=== PATIENT | female | born 1985 | race African-American/Black ===

== ENCOUNTER 2017-01-29 12:03 | Outpatient (CLI) | payer MEDICAID, OTHER ==
--- NOTE | 2017-01-29 13:27 | Non Stress Test Report ---
Non Stress Test Datetime Report Generated by CPN: 01/29/2017 13:27 DEMOGRAPHIC EGA NST: 34.3 INDICATION Indication for Study: Diabetes Mellitus VITAL SIGNS Temperature - NST: 98.0 Pulse - NST: 86 RESP - NST: 18 NBPSYS NST: 103 NBPDIA NST: 61 MONITORING Monitor Explained: Monitor Explained; Test Explained; Patient Verbalized Understanding Time on Monitor: 01/29/2017 12:09 Time off Monitor: 01/29/2017 13:14 NST Duration: 65 NST INTERVENTIONS NST Interventions: PO Hydration; Reposition Patient Physician Notified NST: H Keegan CNM BABY A: [id number] BABY A Movement : Present Contraction Frequency : denies FHR Baseline : 140 Accelerations : 15X15 Decelerations : None Variability : Moderate 6-25bpm NST Review: Meets Criteria for Reactive NST NST Review and Verified By : Jaquan Marsh RN NST Results: Reactive NST REPORT Report Trigger: Send Report
== END 2017-01-29 13:16 | disposition home or self-care (01) ==
LOC: LC 12:03
PROVIDERS: ATTEND Obstetrics & Gynecology
PROC: 4A1HXCZ Monitoring of Products of Conception, Cardiac Rate, External Approach (ICD-10-PCS; principal; 2017-01-29)
DX: O24.419 Gestational diabetes mellitus in pregnancy, unspecified control (principal); Z3A.34 34 weeks gestation of pregnancy
CPT/HCPCS: 59025

== ENCOUNTER 2017-02-02 16:31 | Outpatient (CLI) | payer BC, MEDICAID ==
--- NOTE | 2017-02-02 18:00 | L&D Flow Sheet ---
LD Flowsheet Datetime Report Generated by CPN: 02/02/2017 18:00 Datetime: 02/02/2017 17:34 Patient Position/Activity: Left Lateral (Clarissa Richards, RN) Datetime: 02/02/2017 17:33 Communication Comments: K. Koenig CNM on unit, reviewed strip. Orders for BPP (Clarissa Richards, RN) Datetime: 02/02/2017 17:13 Patient Position/Activity: Right Lateral (Clarissa Richards, RN) Datetime: 02/02/2017 16:52 NBP Sys/Keena/Mean (mmHg): 108 (QS system process) : 60 (QS system process) : 75 (QS system process) Pulse: 76 (QS system process) LaborFlag: Labor (QS system process)
--- NOTE | 2017-02-02 18:37 | Non Stress Test Report ---
Non Stress Test Datetime Report Generated by CPN: 02/02/2017 18:36 DEMOGRAPHIC EGA NST: 35.0 INDICATION Indication for Study: Other MONITORING Monitor Explained: Monitor Explained; Test Explained; Patient Verbalized Understanding Time on Monitor: 02/02/2017 16:50 Time off Monitor: 02/02/2017 18:24 NST Duration: 94 NST INTERVENTIONS NST Interventions: PO Hydration; Reposition Patient Physician Notified NST: K. Koenig CNM BABY A Movement : Present Contraction Frequency : none FHR Baseline : 145 Accelerations : 15X15 Decelerations : None Variability : Moderate 6-25bpm NST Review: Meets Criteria for Reactive NST NST Review and Verified By : SIN Hurst Results: Reactive NST REPORT Report Trigger: Send Report
== END 2017-02-02 18:28 | disposition home or self-care (01) ==
LOC: LC 16:31
PROVIDERS: ATTEND Specialist
PROC: 4A1HXCZ Monitoring of Products of Conception, Cardiac Rate, External Approach (ICD-10-PCS; principal; 2017-02-02)
DX: Z34.93 Encounter for supervision of normal pregnancy, unspecified, third trimester (principal); Z36 Encounter for antenatal screening of mother; Z3A.35 35 weeks gestation of pregnancy
CPT/HCPCS: 59025

== ENCOUNTER 2017-02-04 00:13 | Emergency (ER) | payer BC, MEDICAID ==
[2017-02-04] MEDS ORDERED: MECLIZINE HCL 25 MG TABLET PO ONE (04:30)
--- NOTE | 2017-02-04 04:47 | ER Document Report ---
ED General - General Chief Complaint: Vertigo Stated Complaint: Dizzy Notes: Patient is a pleasant 31-year-old female who is 35 weeks . She presents for complaints of vertigo. She says when she turns her head to the right she feels a spinning sensation. She keeps her head still she does not have the spinning sensation. Symptoms started today. She was recently diagnosed with a sinus infection by her primary care doctor. She is placed on amoxicillin a few days ago. She's had no fevers. She's had sinus pressure and congestion. No head injury. Some nausea with the dizziness. No abdominal pain. No vaginal bleeding. No complications with her . TRAVEL OUTSIDE OF THE [place] IN LAST 30 DAYS: No - Related Data Allergies/Adverse Reactions: No Known Allergies Allergy (Verified 02/02/17 16:47) Past Medical History - Social History Smoking Status: Unknown if Ever Smoked Frequency of alcohol use: None Drug Abuse: None Family History: Reviewed & Not Pertinent Patient has suicidal ideation: No Patient has homicidal ideation: No Renal/ Medical History: Denies: Hx Peritoneal Dialysis - Immunizations Hx Diphtheria, Pertussis, Tetanus Vaccination: Yes Review of Systems - Review of Systems Notes: My Normal Review Basic REVIEW OF SYSTEMS: CONSTITUTIONAL : Denies fever, chills, or sweats. Denies recent illness. EENT: Sinus congestion. RESPIRATORY: Denies cough, cold, or chest congestion. Denies shortness of breath, difficulty breathing, or wheezing. GASTROINTESTINAL: Denies abdominal pain. Denies nausea, vomiting, or diarrhea. Denies constipation. Last BM: MUSCULOSKELETAL: Denies neck or back pain or joint pain or swelling. SKIN: Denies rash or skin lesions. HEMATOLOGIC : Denies easy bruising or bleeding. LYMPHATIC: Denies swollen, enlarged glands. NEUROLOGICAL: Vertigo type dizziness. PSYCHIATRIC: Denies anxiety or stress or depression. ALL OTHER SYSTEMS REVIEWED AND NEGATIVE. Physical Exam - Vital signs Vitals: Temp Pulse Resp BP Pulse Ox 98.8 F 83 18 110/70 99 02/04/17 00:54 02/04/17 00:54 02/04/17 00:54 02/04/17 00:54 02/04/17 00:54 - Notes Notes: General Appearance: Well nourished, alert, cooperative, no acute distress, no obvious discomfort. Vitals: reviewed, See vital signs table. Head: no swelling or tenderness to the head Eyes: PERRL, EOMI, Conjuctiva clear. Patient has nystagmus with right lateral gaze. This is horizontal nystagmus that goes away when the patient looks straight. Mouth: No decreasd moisture Throat: No tonsillar inflammation, No airway obstruction, No lymphadenopathy Neck: Supple, no neck tenderness, No thyromegaly Lungs: No wheezing, No rales, No rhonci, No accessory muscle use, good air exchange bilaterally. Heart: Normal rate, Regular rythm, No murmur, no rub Extremities: strength 5/5 in all extremities, good pulses in all extremities, no swelling or tenderness in the extremities, no edema. Skin: warm, dry, appropriate color, no rash Neuro: speech clear, oriented x 3, normal affect, responds appropriately to questions. Cranial nerves II through XII are intact. Patient moves all extremities on her own without any difficulty. Patient develops vertigo type dizziness when she turns her head to right. When she makes her head center the vertigo goes away. She has no vertigo when she turns her head to the left. Course - Vital Signs Vital signs: Temp Pulse Resp BP Pulse Ox 98.5 F 87 17 112/73 99 02/04/17 04:53 02/04/17 04:53 02/04/17 04:53 02/04/17 04:53 02/04/17 04:53 - Transfer of Care Notes: 02/04/17 06:23 Patient's has signs and symptoms consistent with vestibulitis and peripheral vertigo. Patient will be given meclizine. Patient is encouraged to be very careful and to stand up slowly. She's encouraged to return to ER if her symptoms are not improving 2-3 days. She's encouraged to follow closely with her OB physician. Patient agrees with plan will be discharged home. She has normal blood pressure and no signs of preeclampsia. Dictation of this chart was performed using voice recognition software; therefore, there may be some unintended grammatical errors. Discharge - Discharge Clinical Impression: Vertigo Condition: Good Disposition: HOME, SELF-CARE Instructions: Vertigo ([facility]) Additional Instructions: Please return to ER immediately if you have intractable worsening dizziness, fevers, or feel too unsteady on your feet. Please follow-up with your doctor in 2-3 days. Prescriptions: Meclizine HCl 25 mg PO TID PRN #30 tab.chew PRN Reason: dizziness Referrals: MARYJO GA MD [Primary Care Provider] - Follow up as needed
[2017-02-04 04:54] VITALS: BP 112/73
== END 2017-02-04 04:54 | disposition home or self-care (01) ==
LOC: EDSTATUS 00:13 → ER 00:13
DX: R42 Dizziness and giddiness (principal); Z3A.35 35 weeks gestation of pregnancy
CPT/HCPCS: 99283

== ENCOUNTER 2017-02-05 07:52 | Outpatient (CLI) | payer BC, MEDICAID ==
[2017-02-05] MEDS ORDERED: RINGERS SOLUTION,LACTATED 1,000 ML IV ONE (08:30)
[2017-02-05] MEDS ORDERED: RINGERS SOLUTION,LACTATED 1,000 ML IV PRN (08:30)
[2017-02-05 08:46] LABS: APPEARANCE,URINE SLIGHTLY-CLOUDY; BILIRUBIN,URINE NEGATIVE (NEGATIVE); GLUCOSE, URINE NEGATIVE (NEGATIVE); KETONES,URINE NEGATIVE (NEGATIVE); LEUKOCYTE ESTERASE,URINE NEGATIVE (NEGATIVE); NITRITE,URINE NEGATIVE (NEGATIVE); PROTEIN,URINE NEGATIVE (NEGATIVE); URINE SPECIFIC GRAVITY 1.011; UROBILINOGEN,URINE NEGATIVE mg/dL (<2.0)
[2017-02-05 09:37] LABS: URINE BARBITURATES SCREEN NEGATIVE; URINE METHADONE SCREEN NEGATIVE; URINE OPIATES LOW NEGATIVE; URINE PHENCYCLIDINE SCREEN NEGATIVE
[2017-02-05] MEDS ORDERED: NIFEDIPINE 10 MG CAPSULE PO ONE (09:59)
--- NOTE | 2017-02-05 10:00 | L&D Flow Sheet ---
LD Flowsheet Datetime Report Generated by CPN: 02/05/2017 10:00 Datetime: 02/05/2017 09:44 NBP Sys/Keena/Mean (mmHg): 116 (QS system process) : 73 (QS system process) : 88 (QS system process) Pulse: 81 (QS system process) LaborFlag: Labor (QS system process) Datetime: 02/05/2017 09:30 Respirations: 16 (Delbert Reciot, RN) Monitor Mode: External; Palpation (Delbert Duron RN) Frequency (min): 2-4 (Delbert Duron RN) Quality: Mild/Moderate (Delbert Duron RN) Duration (sec): 60-80 (Delbert Duron RN) Duration Criteria: Less than Two 120 Second Contractions (Delbert Duron RN) Pattern: Normal: <= 5 Contractions in 10 Minutes (Delbert Duron RN) Resting Tone (Palpate): Relaxed (Delbert Duron RN) Monitor Mode: External US (Delbert Duron RN) FHR Baseline Rate : 135 (Delbert Duron RN) Variability: Moderate 6-25 bpm (Delbert Duron RN) Accelerations: 15X15 (Delbert Duron RN) Decelerations: Variable (Delbert Duron RN) Pain Scale: 2 (Delbert Duron RN) Pain Presence: Intermittent (Delbert Duron RN) Pain Type: Contraction (Delbert Duron RN) Pain Location: Abdomen (Delbert Duron RN) Pain Relief Measures: Comfort Measures (Delbert Duron RN) Pain Coping: Talking Through Contractions; Declines Medication or Epidural (Delbert Duron RN) Pain Assessment Comments: No distress noted (Delbert Duron RN) Level of Consciousness: Fully Conscious (Delbert Duron RN) Headache: Denies (Delbert Duron RN) Nausea/Vomiting: Denies (Delbert Duron RN) RUQ Epigastric Pain: Denies (Delbert Duron RN) Comfort Measures: Breathing/Relaxation (Delbert Duron RN) Communication: RN at Bedside; RN Reviewed Strip (Delbert Duron RN) LaborFlag: Labor (QS system process) Datetime: 02/05/2017 09:27 NBP Sys/Keena/Mean (mmHg): 111 (QS system process) : 74 (QS system process) : 89 (QS system process) Pulse: 88 (QS system process) LaborFlag: Labor (QS system process) Datetime: 02/05/2017 09:14 I/O Interventions: Up to BR (Delbert Domi, RN) Datetime: 02/05/2017 09:13 NBP Sys/Keena/Mean (mmHg): 119 (QS system process) : 76 (QS system process) : 94 (QS system process) Pulse: 82 (QS system process) LaborFlag: Labor (QS system process) Datetime: 02/05/2017 09:12 IV/Blood Work: IV Started; IV Bolus Started (Delbert Duron RN) Patient Care Comments: 18G R AC, LR bolus, site wnl, IV infuses well. (Delbert Duron RN) Datetime: 02/05/2017 09:00 Monitor Mode: External; Palpation (Delbert Duron RN) Frequency (min): 2-3 (Delbert Duron RN) Quality: Moderate (Delbert Duron RN) Duration (sec): 60-80 (Delbert Duron RN) Duration Criteria: Less than Two 120 Second Contractions (Delbert Duron RN) Pattern: Normal: <= 5 Contractions in 10 Minutes (Delbert Duron RN) Resting Tone (Palpate): Relaxed (Delbert Duron RN) Monitor Mode: External US (Delbert Duron RN) FHR Baseline Rate : 135 (Delbert Duron RN) Variability: Moderate 6-25 bpm (Delbert Duron RN) Accelerations: 15X15 (Delbert Duron RN) Decelerations: None (Delbert Duron RN) Communication: RN at Bedside; RN Reviewed Strip (Delbert Domi, RN) Datetime: 02/05/2017 08:34 Monitor Interventions for FHR: Ultrasound Adjusted (Delbert Domi, RN) Comments: +FM; RN attempting to attempt continuous fht; active movement. (Delbert Domi, RN) Datetime: 02/05/2017 08:30 Monitor Mode: External; Palpation (Delbert Navaeet, RN) Frequency (min): 2-3 (Delbert Domi, RN) Quality: Moderate (Delbert Domi, RN) Duration (sec): 50-80 (Delbert Domi, RN) Duration Criteria: Less than Two 120 Second Contractions (Delbert Domi, RN) Pattern: Normal: <= 5 Contractions in 10 Minutes (Delbert Domi, RN) Resting Tone (Palpate): Relaxed (Delbert Domi, RN) Monitor Mode: External US (Delbert Navaeet, RN) FHR Baseline Rate : 140 (Delbert Domi, RN) Variability: Moderate 6-25 bpm (Delbert Domi, RN) Accelerations: 10X10 (Delbert Duron RN) Decelerations: None (Delbert Duron RN) Pain Scale: 2 (Delbert Duron RN) Pain Presence: Intermittent (Delbert Duron RN) Pain Type: Contraction (Delbert Duron RN) Pain Location: Abdomen (Delbert Duron RN) Pain Relief Measures: Comfort Measures (Delbert Duron RN) Pain Coping: Talking Through Contractions; Declines Medication or Epidural (Delbert Duron RN) Comfort Measures: Breathing/Relaxation (Delbert Duron RN) Communication: RN at Bedside; RN Reviewed Strip (Delbert Duron RN) Communication Comments: Kati Olson CNM notified of pt arrival, complaint, history. contractions Moderate since 11pm 2-3min, EFM strip, fht, vs. Orders received for IV LR bolus x1 L now then 125ml/hr (Delbert Duron RN) LaborFlag: Labor (QS system process) Datetime: 02/05/2017 08:27 NBP Sys/Keena/Mean (mmHg): 117 (QS system process) : 82 (QS system process) : 96 (QS system process) Pulse: 88 (QS system process) LaborFlag: Labor (QS system process) Datetime: 02/05/2017 08:16 Patient Care Comments: Pt instructed to PO hydrate x1 pitcher of water now. (Delbert Duron RN) Datetime: 02/05/2017 08:15 Monitor Interventions for UA: [place] Adjusted (Delbert Duron RN) Frequency (min): 2-3min (Delbert Duron RN) Monitor Interventions for FHR: Ultrasound Adjusted (Delbert Duron RN) Vaginal Bleeding: None (Delbert Duron RN) Level of Consciousness: Fully Conscious (Delbert Duron RN) DTR's/Clonus: DTRs 2+; No Clonus (Delbert Duron RN) Headache: Denies (Delbert Duron RN) Breath Sounds, Left: Clear and Equal (Delbert Duron RN) Breath Sounds, Right: Clear and Equal (Delbert Duron RN) Nausea/Vomiting: Denies (Delbert Duron RN) RUQ Epigastric Pain: Denies (Delbert Duron RN) Patient Position/Activity: Right Lateral (Delbert Duron RN) Comfort Measures: Breathing/Relaxation (Delbert Duron RN) I/O Interventions: Clear Liquids Given; Up to BR (Delbert Duron RN) Instructional Method: Demo; Verbal; Patient Instructed; Family/Support Person Instructed; Verbalized Understanding (Delbert Duron RN) Plan of Care: Plan of Care Discussed; Labor (Delbert Duron RN) Unit Routine: [place] to Room; Call [place]ung; Bed; Visiting Policy; Waiting Areas; Infant Security; Phone/Cell Phone Use; Photography; Unit Personnel; Handwashing; Flu/Illness Precautions; Monitoring; IV Pumps; Safety/Fall Risk Prevention; Diet/Nutrition Services; Bathroom Privileges; Routine Time Outs; Medications (Delbert Duron RN) Pain Management: PRN Medications; Pain Scale/Goals; Comfort Measures (Delbert Duron RN) PTL/PROM: PTL Stimulating Activities; Hydration (Delbert Duron RN) Related: Common Discomforts of ; Maternal Physical Changes; Maternal Emotional Changes; Nutrition; Hydration; Activity and Rest (Delbert Duron RN) Datetime: 02/05/2017 08:13 Temperature (F): 98.0 (Delbert Duron RN) Temperature (C): 36.7 (QS system process) LaborFlag: Labor (QS system process) Datetime: 02/05/2017 08:12 NBP Sys/Keena/Mean (mmHg): 114 (QS system process) : 83 (QS system process) : 94 (QS system process) Pulse: 93 (QS system process) LaborFlag: Labor (QS system process)
[2017-02-05] MEDS ORDERED: NIFEDIPINE 10 MG CAPSULE ONE (10:03)
--- NOTE | 2017-02-05 10:23 | Non Stress Test Report ---
Non Stress Test Datetime Report Generated by CPN: 02/05/2017 10:23 DEMOGRAPHIC EGA NST: 35.3 INDICATION Indication for Study: Ordered by Provider Indication for Study (NST) Other: NST MONITORING Monitor Explained: Monitor Explained; Test Explained; Patient Verbalized Understanding Time on Monitor: 02/05/2017 09:42 Time off Monitor: 02/05/2017 10:18 NST Duration: 36 NST INTERVENTIONS NST Interventions: None Physician Notified NST: BOLAND BABY A Movement : Present Contraction Frequency : 2-5 FHR Baseline : 135 Accelerations : 15X15 Decelerations : None Variability : Moderate 6-25bpm NST Review: Meets Criteria for Reactive NST NST Review and Verified By : SIN Dias Results: Reactive NST REPORT Report Trigger: Send Report
--- NOTE | 2017-02-06 11:49 | Non Stress Test Report ---
Non Stress Test Datetime Report Generated by CPN: 02/06/2017 11:48 DEMOGRAPHIC EGA NST: 35.4 INDICATION Indication for Study: Other Indication for Study (NST) Other: LC MONITORING Monitor Explained: Monitor Explained; Test Explained; Patient Verbalized Understanding Time on Monitor: 02/06/2017 11:13 Time off Monitor: 02/06/2017 11:47 NST Duration: 34 NST INTERVENTIONS NST Interventions: PO Hydration Physician Notified NST: K. Koenig CNM BABY A Movement : Present Contraction Frequency : 0 FHR Baseline : 140 Accelerations : 15X15 Decelerations : None Variability : Moderate 6-25bpm NST Review: Meets Criteria for Reactive NST NST Review and Verified By : SIN Dias Results: Reactive NST REPORT Report Trigger: Send Report
== END 2017-02-05 11:25 | disposition home or self-care (01) ==
LOC: LC 07:52
PROVIDERS: ATTEND Obstetrics & Gynecology
PROC: 4A1HXCZ Monitoring of Products of Conception, Cardiac Rate, External Approach (ICD-10-PCS; principal; 2017-02-05)
DX: O47.03 False labor before 37 completed weeks of gestation, third trimester (principal); Z3A.35 35 weeks gestation of pregnancy
CPT/HCPCS: 59025; 81001; 87081; 80307; J3490

== ENCOUNTER 2017-02-06 10:45 | Outpatient (CLI) | payer BC, MEDICAID ==
[2017-02-06 11:27] LABS: APPEARANCE,URINE SLIGHTLY-CLOUDY; BILIRUBIN,URINE NEGATIVE (NEGATIVE); GLUCOSE, URINE NEGATIVE (NEGATIVE); KETONES,URINE NEGATIVE (NEGATIVE); LEUKOCYTE ESTERASE,URINE TRACE (NEGATIVE); NITRITE,URINE NEGATIVE (NEGATIVE); PROTEIN,URINE NEGATIVE (NEGATIVE); URINE SPECIFIC GRAVITY 1.008; UROBILINOGEN,URINE NEGATIVE mg/dL (<2.0)
[2017-02-06 11:29] LABS: AMNISURE (ROM) NEGATIVE (NEGATIVE)
[2017-02-06 12:18] LABS: URINE BARBITURATES SCREEN NEGATIVE; URINE METHADONE SCREEN NEGATIVE; URINE OPIATES LOW NEGATIVE; URINE PHENCYCLIDINE SCREEN NEGATIVE
== END 2017-02-06 12:02 | disposition home or self-care (01) ==
LOC: ER 10:45 → LC 12:02
PROVIDERS: ATTEND Obstetrics & Gynecology
PROC: 4A1HXCZ Monitoring of Products of Conception, Cardiac Rate, External Approach (ICD-10-PCS; principal; 2017-02-06)
DX: O47.03 False labor before 37 completed weeks of gestation, third trimester (principal); Z3A.35 35 weeks gestation of pregnancy
CPT/HCPCS: 80307; 81001; 84112

== ENCOUNTER 2017-02-07 07:13 | Inpatient (IN) | payer BC, MEDICAID ==
[2017-02-07 07:51] LABS: AMNISURE (ROM) POSITIVE (NEGATIVE)
[2017-02-07 07:57] LABS: APPEARANCE,URINE CLEAR; BILIRUBIN,URINE NEGATIVE (NEGATIVE); GLUCOSE, URINE NEGATIVE (NEGATIVE); KETONES,URINE NEGATIVE (NEGATIVE); LEUKOCYTE ESTERASE,URINE NEGATIVE (NEGATIVE); NITRITE,URINE NEGATIVE (NEGATIVE); PROTEIN,URINE NEGATIVE (NEGATIVE); URINE SPECIFIC GRAVITY 1.012; UROBILINOGEN,URINE NEGATIVE mg/dL (<2.0)
--- NOTE | 2017-02-07 08:01 | L&D Flow Sheet ---
LD Flowsheet Datetime Report Generated by CPN: 02/07/2017 08:00 Datetime: 02/07/2017 07:43 Frequency (min): q 3 min (Leann Smith RN) Pain Scale: 3 (Leann Smith RN) Pain Presence: Intermittent (Leann Smith RN) Pain Type: Contraction (Leann Smith RN) Pain Location: Abdomen (Leann Smith RN) Pain Goal: 0 (Leann Smith RN) Vaginal Bleeding: None (Leann Smith RN) Level of Consciousness: Fully Conscious (Leann Smith RN) DTR's/Clonus: DTRs 2+; No Clonus (Leann Smith RN) Headache: Denies (Leann Smith RN) Breath Sounds, Left: Clear and Equal (Leann Smith RN) Breath Sounds, Right: Clear and Equal (Leann Smith RN) Nausea/Vomiting: Denies (Leann Smith RN) RUQ Epigastric Pain: Denies (Leann Smith RN) LaborFlag: Labor (QS system process) Datetime: 02/07/2017 07:41 NBP Sys/Keena/Mean (mmHg): 110 (QS system process) : 72 (QS system process) : 86 (QS system process) Pulse: 83 (QS system process) LaborFlag: Labor (QS system process)
[2017-02-07] MEDS ORDERED: PENICILLIN G POTASSIUM 5,000,000 UNIT in DEXTROSE 5%-WATER 100 ML IV ONE (08:03)
[2017-02-07] MEDS ORDERED: RINGERS SOLUTION,LACTATED 1,000 ML IV PRN (08:03)
[2017-02-07] MEDS ORDERED: MISOPROSTOL 0.2 MG TABLET PR PRN ×2 (08:04→11:54)
[2017-02-07] MEDS ORDERED: OXYTOCIN/NORMAL SALINE 1,000 ML IV PRN ×2 (08:04→13:44)
[2017-02-07] MEDS ORDERED: FENTANYL/BUPIVACAINE/NS/PF 100 ML EPI PRN (08:06)
[2017-02-07] MEDS ORDERED: BUPIVACAINE HCL 0.25 % INJ/PF (2.5 MG/1 ML) 30 ML VIAL INFIL PRN (08:06)
[2017-02-07] MEDS ORDERED: EPHEDRINE SULFATE INJ 50 MG/1 ML AMPULE IV PRN (08:06)
[2017-02-07] MEDS ORDERED: PENICILLIN G-K 5 MILLION UNIT VIAL ONE ×3 (08:07→12:29)
[2017-02-07 08:23] LABS: URINE BARBITURATES SCREEN NEGATIVE; URINE METHADONE SCREEN NEGATIVE; URINE OPIATES LOW NEGATIVE; URINE PHENCYCLIDINE SCREEN NEGATIVE
[2017-02-07 08:30] LABS: ABSOLUTE BASOPHILS # (AUTO) 0.1 10^3/uL (0.0-0.2); ABSOLUTE EOSINOPHILS # (AUTO) 0.1 10^3/uL (0.0-0.6); ABSOLUTE LYMPHOCYTES (AUTO) 1.6 10^3/uL (0.5-4.7); ABSOLUTE MONOCYTES (AUTO) 1.1 10^3/uL (0.1-1.4); ABSOLUTE NEUT (AUTO) 10.4 10^3/uL (1.7-8.2); BASOPHILS % (AUTO) 0.6 % (0-2); HEMATOCRIT 35.9 % (36.0-47.0); HEMOGLOBIN 11.6 g/dL (12.0-15.5); HGB HCT DIFFERENCE -1.1; MEAN CORPUSCULAR HEMOGLOBIN 25.3 pg (27.0-33.4); MEAN CORPUSCULAR HGB CONC 32.4 g/dL (32.0-36.0); MEAN CORPUSCULAR VOLUME 78 fl (80-97); MONOCYTES % (AUTO) 8.4 % (3-13); RED BLOOD COUNT 4.59 10^6/uL (3.72-5.28); RED CELL DISTRIBUTION WIDTH 14.1 % (11.5-14.0); WHITE BLOOD COUNT 13.4 10^3/uL (4.0-10.5)
[2017-02-07] MEDS ORDERED: OXYTOCIN/NORMAL SALINE 20 UNIT/1,000 ML RTUINJ ONE (11:32)
[2017-02-07] MEDS ORDERED: LIDOCAINE 1% INJ-PF (10 MG/ML) 30 ML SDV ONE (11:54)
[2017-02-07] MEDS ORDERED: MISOPROSTOL 0.2 MG TABLET ONE (11:54)
[2017-02-07] MEDS ORDERED: LIDOCAINE 1% INJ-PF (10 MG/ML) 30 ML SDV INJ PRN (11:56)
[2017-02-07] MEDS ORDERED: PENICILLIN G POTASSIUM 2,500,000 UNIT in DEXTROSE 5%-WATER 50 ML IV SCH (12:04)
[2017-02-07] MEDS ORDERED: ACETAMINOPHEN WITH CODEINE #3 TABLET PO PRN ×2 (13:44)
[2017-02-07] MEDS ORDERED: DIPH/PERTUSS(ACELL)/TETANUS VAC/PF 0.5 ML SYR (>=10YO) IM PRN (13:44)
[2017-02-07] MEDS ORDERED: DIBUCAINE 1% OINTMENT 28 GM TP PRN (13:44)
[2017-02-07] MEDS ORDERED: BENZOCAINE/MENTHOL AEROSOL SPRAY 56 ML TOP PRN (13:44)
[2017-02-07] MEDS ORDERED: ZOLPIDEM TARTRATE 5 MG TABLET PO PRN (13:44)
[2017-02-07] MEDS ORDERED: MEASLES,MUMPS&RUBELLA VACC/PF 0.5 ML VIAL SUBCUT PRN (13:44)
--- NOTE | 2017-02-07 14:03 | Delivery Summary ---
Del Sum A-C Datetime Report Generated by CPN: 02/07/2017 14:03 ADMISSION DATA Chief Complaint: Uterine Contractions; Suspected Ruptured Membranes Indication for Induction: PROM Admission Impression: , Intrauterine ; Ruptured Membranes DELIVERY PERSONNEL Delivery Doctor:: Danna Salvador MD Labor and Delivery Nurse:: Leann Smith RNhelp desk supervisor Nurse:: Clarissa Matthew RN Nursery Nurse:: Renetta Ye RN Nursery Nurse:: Alia Perla RN Department Secretary/SENIOR IT SECURITY ANALYST: Laura Malhotra, SIGNING TEACHER Additional Personnel: : Galina Vivas, RN MATERNAL INFORMATION Delivery Anesthesia: None Medications After Delivery: Pitocin Bolus-Please Comment Meds After Delivery Comment: 20units in 1000ml NS Estimated Blood Loss (ml): 200 Maternal Complications: Other Complication Details: labor GDM LABOR SUMMARY EDC: 03/09/2017 00:00 No. Babies in Womb: 1 Attempted: No Labor Anesthesia: None LABOR INFORMATION Reason for Induction: Other Reason for Induction- Other: labor, SROM Onset of Labor: 02/07/2017 03:00 Complete Dilatation: 02/07/2017 13:23 Oxytocin: Augmentation Group B Beta Strep: Unknown Antibiotics # of Doses: 2 Antibiotics Time of Last Dose: 1229 Name of Antibiotic Given: PCN Steroids Given: None Reason Steroids Not Administered: Not Applicable MEMBRANES Membranes Rupture Method: Spontaneous Rupture of Membranes: 02/06/2017 23:00 Length of Rupture (hr): 14.48 Amniotic Fluid Color: Light Meconium Amniotic Fluid Amount: Small Amniotic Fluid Odor: Normal STAGES OF LABOR Stage 1 hr: 10 Stage 1 min: 23 Stage 2 hr: 0 Stage 2 min: 6 Stage 3 hr: 0 Stage 3 min: 5 Total Time in Labor hr: 10 Total Time in Labor min: 34 VAGINAL DELIVERY Episiotomy: None Laceration Extension: N/A Laceration Type: None Other Laceration: Minor vaginal abrasion Laceration Repair: Not Applicable Sponge Count Correct: Yes CSECTION DELIVERY Primary Indication: N/A Secondary Indication: N/A CSection Urgency: N/A CSection Incidence: N/A Labor: N/A Elective: N/A CSection Incision: N/A BABY A INFORMATION Delivery Date/Time: 02/07/2017 13:29 Method of Delivery: Vaginal Born in Route : No : N/A Forceps: N/A Vacuum Extraction: N/A Shoulder Dystocia : No PRESENTATION/POSITION BABY A Presentation: Cephalic Cephalic Presentation: Vertex Vertex Position: Left Occipital Anterior Breech Presentation: N/A PLACENTA INFORMATION BABY A Placenta Delivery Time : 02/07/2017 13:34 Placenta Method of Delivery: Spontaneous Placenta Status: Delivered SCORES BABY A Heart Rate 1 min: >100 bpm Resp Effort 1 min: Good Cry Reflex Irritability 1 min: [place] Muscle Tone 1 min: Some Flexion of Extremities Color 1 min: Body [place], Extremities Blue Resuscitation Effort 1 min: Tactile Stimulation SCORE 1 MIN: 7 Heart Rate 5 min: >100 bpm Resp Effort 5 min: Good Cry Reflex Irritability 5 min: Cough or Sneeze or Pulls Away Muscle Tone 5 min: Some Flexion of Extremities Color 5 min: Body [place], Extremities Blue Resuscitation Effort 5 min: Tactile Stimulation SCORE 5 MIN: 8 INFORMATION BABY A Gestational Age at Delivery: 35.5 Gestational Status: Late - 34- 36.6 Weeks Infant Outcome : Liveborn Infant Condition : Stable Infant Sex: Female IDENTIFICATION BABY A Verification Date/Time: 02/07/2017 13:51 ID Band Number: [id number] Mother's Name Verified: Yes RN Verifying : L. Smith, RN and A. Vipul, RN WEIGHT/LENGTH BABY A Infant Birthweight (gm): 2142 Infant Weight (lb): 4 Weight (oz): 12 Infant Length (in): 17.00 Infant Length (cm): 43.18 CORD INFORMATION BABY A No. Cord Vessels: 3 Nuchal Cord : N/A Cord Blood Taken: Yes-For Eval (Mom's Blood Type - or O+) Infant Suction: Mouth; Nose ASSESSMENT BABY A Infant Complications: None Physical Findings at Delivery: Within Normal Limits Skin to Skin: No Scrap Handler/ALS Called : No Infant Care By: Jaquan Bravo RN, Russ Perla RN, Nain Vivas RN Transferred To: NICU BABY B INFORMATION : N/A SIGNATURES Signature: with User ID: [email or web address]
[2017-02-07] MEDS: IBUPROFEN 800 MG TABLET PO SCH ×2 (15:30→21:07)
--- NOTE | 2017-02-07 15:46 | Admission Physical ---
Datetime Report Generated by CPN: 02/07/2017 15:46 CURRENT ADMISSION Chief Complaint: Uterine Contractions; Suspected Ruptured Membranes Indication for Induction: PROM Admit Plan: Admit to Unit; Initiate Labor Augmentation Protocol ALLERGIES Medication Allergies: No Medication Allergies: No Known Allergies (02/07/2017) Medication Allergies: No Known Allergies (02/05/2017) Medication Allergies: No Known Allergies (02/02/2017) Medication Allergies: No Known Allergies (01/29/2017) Medication Allergies: No Known Allergies (07/01/2016) Latex: No Latex Allergies Food Allergies: None Environmental Allergies: None OBSTETRICAL HISTORY EDC: 03/09/2017 00:00 : 2 Para: 0 Term: 0 : 0 SAB: 0 IAB: 1 Ectopic: 0 Livin Cesareans: 0 VBACs: 0 Multiple Births: 0 Gestational Diabetes: Yes Rh Sensitization: No Incompetent Cervix: No RUBIO: No Infertility: No ART Treatment: No Uterine Anomaly: No IUGR: No Hx Previous C/S: No Macrosomia: No Hx Loss/Stillborn: No PIH: No Hx : No Placenta Previa/Abruption: No Depression/PP Depression: No PTL/PROM: No Post Hemorrhage: No Current Procedures: Ultrasound; NST Obstetrical History Comments: G1: EAB, 05/2014 G2: Current, GDM SEE RECORDS Alcohol: No Marijuana : No Cocaine: No Other Illicit Drugs: No Cigarettes: Former Smoker. [id number] MEDICAL HISTORY Diabetes: Yes Diabetes Type: Gestational Diabetes Blood Transfusion: No Pulmonary Disease (Asthma, TB): Yes Breast Disease: No Hypertension: No Street Cleaner Surgery: No Heart Disease: No Hosp/Surgery: No Autoimmune Disorder: No Anesthetic Complications: No Kidney Disease: No Abnormal Pap Smear: Yes Neuro/Epilepsy: No Psychiatric Disorders: No Other Medical Diseases: No Hepatitis/Liver Disease: No Significant Family History: No Varicosities/Phlebitis: No Trauma/Violence : No Thyroid Dysfunction: No Medical History Comments: asthma, reoccuring abnl paps, reoccuring BV INFECTIOUS HISTORY Gonorrhea: Yes Genital Herpes: No Chlamydia: Yes Tuberculosis: No Syphilis: No Hepatitis: No HIV/AIDS Exposure: No Rash or Viral Illness: No HPV: No Infectious History Comments: BV, oral gonorrhea 2010 , chlamydia 2008 and 2010 PHYSICAL EXAM General: Normal HEENT: Normal Neurologic: Normal Thyroid: Normal Heart: Normal Lungs: Normal Breast: Normal Back: Normal Abdomen: Normal Genitourinary Exam: Normal Extremities: Normal DTRs: Normal Pelvic Type: Adequate VAGINAL EXAM Dilatation: 7 Effacement: 80 Station: 0 MEMBRANES Pooling: Positive Membranes: Ruptured Amniotic Fluid Color: Meconium, Particulate FETUS A EGA: 35.5 Monitoring: External US FHR- Baseline: 150 Variability: Moderate 6-25bpm Accelerations: 15X15 Decelerations: None FHR Category: Category I Estimated Weight (gm): 3200 Presentation: Vertex PLANS FOR LABOR AND DELIVERY Labor and Delivery: Plan Pain Management: Epidural Feeding Preference: Breast Benefit of Breast Feed Discussed: Yes Circumcision: N/A INFORMED CONSENT Signature: with User ID: [email or web address]
[2017-02-07] MEDS: FERROUS SULFATE 325 MG TABLET PO SCH (17:47)
[2017-02-07] MEDS: DOCUSATE SODIUM 100 MG CAPSULE PO SCH (17:47)
--- NOTE | 2017-02-07 19:00 | L&D Flow Sheet ---
LD Flowsheet Datetime Report Generated by CPN: 02/07/2017 19:00 Datetime: 02/07/2017 14:57 NBP Sys/Keena/Mean (mmHg): 126 (QS system process) : 82 (QS system process) : 95 (QS system process) Pulse: 82 (QS system process) Respirations: 16 (Leann Smith RN) Pain Scale: 0 (Leann Smith RN) Pain Presence: None/Denies (Leann Smith RN) Pain Type: N/A (Leann Smith RN) Pain Goal: 0 (Leann Smith RN) Datetime: 02/07/2017 14:42 NBP Sys/Keena/Mean (mmHg): 130 (QS system process) : 61 (QS system process) : 88 (QS system process) Pulse: 84 (QS system process) Respirations: 16 (Leann Smith, RN) Pain Scale: 0 (Leann Smith, RN) Pain Presence: None/Denies (Leann Smith, RN) Pain Type: N/A (Leann Smith, RN) Pain Goal: 0 (Leann Smith, RN) Datetime: 02/07/2017 14:27 NBP Sys/Keena/Mean (mmHg): 140 (QS system process) : 83 (QS system process) : 104 (QS system process) Pulse: 93 (QS system process) Respirations: 16 (Leann Smith, RN) Pain Scale: 0 (Leann Smith, RN) Pain Presence: None/Denies (Leann Smith, RN) Pain Type: N/A (Leann Smith, RN) Pain Goal: 0 (Leann Smith, RN) Datetime: 02/07/2017 14:12 NBP Sys/Keena/Mean (mmHg): 121 (QS system process) : 79 (QS system process) : 96 (QS system process) Pulse: 79 (QS system process) Respirations: 16 (Leann Smith, RN) Pain Scale: 0 (Leann Smith, RN) Pain Presence: None/Denies (Leann Smith, RN) Pain Type: N/A (Lenan Smith, RN) Pain Goal: 0 (Leann Smith, RN) Datetime: 02/07/2017 13:57 NBP Sys/Keena/Mean (mmHg): 119 (QS system process) : 80 (QS system process) : 96 (QS system process) Pulse: 80 (QS system process) Respirations: 16 (Leann Smith, RN) Pain Scale: 0 (Leann Smith, RN) Pain Presence: None/Denies (Leann Smith, RN) Pain Type: N/A (Leann Smith, RN) Pain Goal: 0 (Leann Smith, RN) Datetime: 02/07/2017 13:42 NBP Sys/Keena/Mean (mmHg): 120 (QS system process) : 78 (QS system process) : 95 (QS system process) Pulse: 90 (QS system process) Respirations: 16 (Leann Smith RN) Temperature (F): 98.8 (Leann Smith RN) Temperature (C): 37.1 (QS system process) Temperature Route: Oral (Leann Smith RN) Pain Scale: 0 (Leann Smith RN) Pain Presence: None/Denies (Leann Smith RN) Pain Type: N/A (Leann Smith RN) Pain Goal: 0 (Leann Smith RN) Datetime: 02/07/2017 13:30 Stage of : Recovery (Leann Smith RN) Datetime: 02/07/2017 13:29 Monitor Mode: External; Palpation (Leann Smith RN) Frequency (min): 2.5-5 (Leann Smith RN) Quality: Moderate (Leann Smith RN) Duration (sec): 60-80 (Leann Smith RN) Resting Tone (Palpate): Relaxed (Leann Smith RN) Monitor Mode: External US (Leann Smith RN) FHR Baseline Rate : 150 (Leann Smith RN) Variability: Moderate 6-25 bpm (Leann Smith RN) Accelerations: 15X15 (Leann Smith RN) Decelerations: Variable (Leann Smith RN) Stage 2 Comments: Viable baby girl (Leann Smith RN) Datetime: 02/07/2017 13:23 Dilatation (cm): 10.0 (Leann Smith RN) Effacement (%): 100 (Leann Smith RN) Station: 3 (Leann Smith RN) Exam by: Dr. Salvador (Leann Smith RN) Datetime: 02/07/2017 13:03 Dilatation (cm): 9.0 (Leann Smith RN) Effacement (%): 90 (Leann Smith RN) Station: 2 (Leann Smith RN) Exam by: Dr. Salvador (Leann Smith, RN) Datetime: 02/07/2017 13:02 Patient Position/Activity: Right Extreme (Leann Smith, RN) Datetime: 02/07/2017 13:00 Monitor Mode: External; Palpation (Leann Smith, RN) Frequency (min): 1.5-5 (Leann Smith, RN) Quality: Moderate (Leann Smtih, RN) Duration (sec): 60-90 (Leann Smith, RN) Resting Tone (Palpate): Relaxed (Leann Smith, RN) Monitor Mode: External US (Leann Smith, RN) FHR Baseline Rate : 150 (Leann Smith, RN) Variability: Minimal - Undetectable to <=5 bpm (Leann Smith, RN) Accelerations: None (Leann Smith, RN) Decelerations: Early (Leann Sarah, RN) Datetime: 02/07/2017 12:39 Dilatation (cm): 8.0 (Leannjudie Smith, RN) Effacement (%): 90 (Leann Smith, RN) Station: 1 (Leannjudie Smith, RN) Exam by: Dr. Salvador (Leann Smith, RN) Datetime: 02/07/2017 12:30 Monitor Mode: External; Palpation (Leann Galiciaon, RN) Frequency (min): 1-5 (Leann Smith, RN) Quality: Moderate (Leann Smith, RN) Duration (sec): 60-90 (Leann Smith, RN) Resting Tone (Palpate): Relaxed (Leann Galiciaon, RN) Monitor Mode: External US (Leann Galiciaon, RN) FHR Baseline Rate : 145 (Leann Smith, RN) Variability: Moderate 6-25 bpm (Leann Smith, RN) Accelerations: 15X15 (Leann Smith, RN) Decelerations: Variable (Leann Smith, RN) Datetime: 02/07/2017 12:29 Antibiotics: Penicillin IV (Units) @ 2,500,000 (Leann Smith RN) Datetime: 02/07/2017 12:22 Patient Position/Activity: Left Lateral; Peanut Ball (Leann Smith, SIN) Datetime: 02/07/2017 12:00 Monitor Mode: External; Palpation (Leann Smith RN) Frequency (min): 2-6 (Leann Smith RN) Quality: Moderate (Leann Smith RN) Duration (sec): 60-90 (Leann Smith RN) Resting Tone (Palpate): Relaxed (Leann Smith RN) Monitor Mode: External US (Leann Smith RN) FHR Baseline Rate : 150 (Leann Smith RN) Variability: Moderate 6-25 bpm (Leann Smith, RN) Accelerations: 15X15 (Leann Smith, RN) Decelerations: Variable (Leann Smith, RN) Datetime: 02/07/2017 11:57 Dilatation (cm): 7.0 (Leann Smith, SIN) Effacement (%): 90 (Leann Smith RN) Station: 0 (Leann Smith RN) Exam by: Dr. Salvador (Leann Smith, SIN) Datetime: 02/07/2017 11:30 Monitor Mode: External; Palpation (Leann Smith RN) Frequency (min): 2-6 (Leann Smith RN) Quality: Moderate (Leann Smith RN) Duration (sec): 60-90 (Leann Smith RN) Resting Tone (Palpate): Relaxed (Leann Smith RN) Monitor Mode: External US (Leann Smith RN) FHR Baseline Rate : 145 (Leann Smith RN) Variability: Moderate 6-25 bpm (Leann Smith RN) Accelerations: 10X10 (Leann Smith, RN) Decelerations: None (Leann Smith, RN) Datetime: 02/07/2017 11:00 Monitor Mode: External; Palpation (Leann Smith, RN) Frequency (min): 26 (Leann Smith, RN) Quality: Moderate (Leann Smith, RN) Duration (sec): 60-90 (Leann Smith, RN) Resting Tone (Palpate): Relaxed (Leann Smith, RN) Monitor Mode: External US (Leann Smith, RN) FHR Baseline Rate : 150 (Leann Smith, RN) Variability: Moderate 6-25 bpm (Leann Smith, RN) Accelerations: 10X10 (Leann Smith, RN) Decelerations: Early (Leann Smith, RN) Datetime: 02/07/2017 10:52 Bedside Blood Glucose: 81 (QS system process) LaborFlag: Labor (QS system process) Datetime: 02/07/2017 10:49 NBP Sys/Keena/Mean (mmHg): 133 (QS system process) : 85 (QS system process) : 102 (QS system process) Pulse: 78 (QS system process) LaborFlag: Labor (QS system process) Datetime: 02/07/2017 10:30 Monitor Mode: External; Palpation (Leann Smith, RN) Frequency (min): 2-5 (Leann Smith, RN) Quality: Moderate (Leann Smith, RN) Duration (sec): 60-80 (Leannjudie Smith, RN) Resting Tone (Palpate): Relaxed (Leann Smith, RN) Monitor Mode: External US (Leann Smith, RN) FHR Baseline Rate : 150 (Leannjudie Galiciaon, RN) Variability: Moderate 6-25 bpm (Leann Smith, RN) Accelerations: None (Leann Smith, RN) Decelerations: None (Leann Smith, RN) Datetime: 02/07/2017 10:19 Temperature (F): 98.9 (Leann Smith, RN) Temperature (C): 37.2 (QS system process) LaborFlag: Labor (QS system process) Datetime: 02/07/2017 10:00 Monitor Mode: External; Palpation (Leann Smith, RN) Frequency (min): 1.5-4 (Leann Smith, RN) Quality: Moderate (Leann Sarah, RN) Duration (sec): 60-80 (Leann Smith, RN) Resting Tone (Palpate): Relaxed (Leann Smith, RN) Monitor Mode: External US (Leann Smith, RN) FHR Baseline Rate : 150 (Leann Smith, RN) Variability: Moderate 6-25 bpm (Leann Smith, RN) Accelerations: None (Leann Smith, RN) Decelerations: Early (Leann Smith, RN) Datetime: 02/07/2017 09:39 Patient Position/Activity: Hands-Knees (Leann Smith RN) Patient Care Comments: Leaning over peanut ball (Leann Smith RN) Datetime: 02/07/2017 09:37 Communication: RN at Bedside (Leann Smith RN) Datetime: 02/07/2017 09:30 Monitor Mode: External; Palpation (Leann Smith RN) Frequency (min): 2-6 (Leann Smith RN) Quality: Moderate (Leann Smith RN) Duration (sec): 60-80 (Leann Smith RN) Resting Tone (Palpate): Relaxed (Leann Smith RN) Monitor Mode: External US (Leann Smith RN) FHR Baseline Rate : 145 (Leann Smith RN) Variability: Moderate 6-25 bpm (Leann Smith RN) Accelerations: None (Leann Smith RN) Decelerations: Late (Leann Smith, RN) Datetime: 02/07/2017 09:00 Monitor Mode: External; Palpation (Leann Smith, RN) Frequency (min): 2-6 (Leann Smith, RN) Quality: Moderate (Leann Smith, RN) Duration (sec): 60-90 (Leann Smith, RN) Resting Tone (Palpate): Relaxed (Leann Smith, RN) Monitor Mode: External US (Leann Smith, RN) FHR Baseline Rate : 145 (Leann Smith, RN) Variability: Moderate 6-25 bpm (Leann Smith, RN) Accelerations: 15X15 (Leann Smith, RN) Decelerations: None (Leann Smith, RN) Datetime: 02/07/2017 08:30 Monitor Mode: External; Palpation (Leann Smith, RN) Frequency (min): 1-5 (Leann Smith, RN) Quality: Moderate (Leann Smith, RN) Duration (sec): 60-90 (Leann Smith, RN) Resting Tone (Palpate): Relaxed (Leann Smith, RN) Monitor Mode: External US (Leann Smith, RN) FHR Baseline Rate : 140 (Leann Smith RN) Variability: Moderate 6-25 bpm (Leann Smith RN) Accelerations: 15X15 (Leann Smith RN) Decelerations: None (Leann Smith RN) Membranes Ruptured Date/Time: 02/06/2017 23:00 (Leann Smith RN) Membranes Rupture Method: Spontaneous (Leann Smith RN) Amniotic Fluid Color: Light Meconium (Leann Smith RN) Amniotic Fluid Amount: Small (Leann Smith RN) Amniotic Fluid Odor: Normal (Leann Smith RN) Vaginal Bleeding: None (Leann Smith RN) Pool: Positive (Leann Smith RN) Datetime: 02/07/2017 08:29 Antibiotics: Penicillin IV (Units) @ 5,000,000 units (Leann Smith RN) Datetime: 02/07/2017 08:18 Temperature (F): 98.8 (Leann Smith RN) Temperature (C): 37.1 (QS system process) LaborFlag: Labor (QS system process) Datetime: 02/07/2017 08:15 IV/Blood Work: IV Started (Leann Smith, SIN) Datetime: 02/07/2017 08:04 Communication: Provider Orders Received; Call/Page Placed to Provider (Leann Smith RN) Provider Notified (Name): Dr. Salvador (Leann Smith RN) Communication Comments: Notified of fhts, ctx, labs, v/s, and SSE finding. Received orders to admit to L_D for labor. Start PCN G for GBS prophylaxis. May have epidural PRN pain. (Leann Smith RN) Datetime: 02/07/2017 08:01 Dilatation (cm): 5.0 (Leann Smith, RN) Vaginal Exam Comments: SSE, Cervix visually 5 cm with bulging membranes. Thin meconium pooling in vaginal vault. (Leann Smith, RN) Datetime: 02/07/2017 08:00 Monitor Mode: External; Palpation (Leann Smith, RN) Frequency (min): 2-3 (Leann Smith, RN) Quality: Moderate (Leann Smith, RN) Duration (sec): 60-80 (Leann Smith, RN) Resting Tone (Palpate): Relaxed (Leann Galiciaon, RN) Monitor Mode: External US (Leann Smith, RN) FHR Baseline Rate : 150 (Leann Smith, RN) Variability: Moderate 6-25 bpm (Leann Smith, RN) Decelerations: None (Leann Smith, RN) Datetime: 02/07/2017 07:43 Frequency (min): q 3 min (Leann Smith RN) Pain Scale: 3 (Leann Smith RN) Pain Presence: Intermittent (Leann Smith RN) Pain Type: Contraction (Leann Smith RN) Pain Location: Abdomen (Leann Smith RN) Pain Goal: 0 (Leann Smith RN) Vaginal Bleeding: None (Leann Smith RN) Level of Consciousness: Fully Conscious (Leann Smith RN) DTR's/Clonus: DTRs 2+; No Clonus (Leann Smith RN) Headache: Denies (Leann Smith RN) Breath Sounds, Left: Clear and Equal (Leann Smith RN) Breath Sounds, Right: Clear and Equal (Leann Smith RN) Nausea/Vomiting: Denies (Leann Smith RN) RUQ Epigastric Pain: Denies (Leann Smith RN) LaborFlag: Labor (QS system process) Datetime: 02/07/2017 07:41 NBP Sys/Keena/Mean (mmHg): 110 (QS system process) : 72 (QS system process) : 86 (QS system process) Pulse: 83 (QS system process) Respirations: 16 (Leann Smith RN) LaborFlag: Labor (QS system process)
[2017-02-08] MEDS: IBUPROFEN 800 MG TABLET PO SCH ×3 (05:08→21:02)
--- NOTE | 2017-02-08 06:01 | L&D Current Admission ---
Current Admit Datetime Report Generated by CPN: 02/08/2017 06:00 ADMISSION INFORMATION Current Admit Date/Time: 02/07/2017 08:19 (02/07/2017 07:43:Leann Smith RN) Reason for Admission: Onset of Labor; Rupture of Membranes (02/07/2017 07:43:Leann Smith RN) Chief Complaint: Contractions; Suspected Rupture of Membranes (02/07/2017 07:43:Leann Smith RN) Medications During : Vitamin (02/07/2017 07:43:Leann Smith RN) EGA per Dates: 35.5 (02/07/2017 07:43:QS system process) Admitted From: Home (02/07/2017 07:43:Leann Smith RN) Reason for Induction: Not Applicable (02/07/2017 07:43:Leann Smith RN) Records Available: Yes (02/07/2017 07:43:Leann Smith RN) General Admission Information: Reviewed; Updated (02/07/2017 07:43:Leann Smith RN) General Admission Reviewed By: Rita Smith (02/07/2017 07:43:Leann Smith RN) BELONGINGS/ADVANCED DIRECTIVES Valuables/Personal Effects: Purse/Wallet; Cell Phone (02/07/2017 07:43:Leann Smith RN) Other Belongings: clothing (02/07/2017 07:43:Leann Smith RN) Disposition of Belongings: Kept with Patient (02/07/2017 07:43:Leann Simth RN) Advance Direct for Healthcare: No, and Wants No Information (02/07/2017 07:43:Leann Smith RN) Durable Power of Adjunct Political Science Instructor: No (02/07/2017 07:43:Leann Smith RN) Living Will: No (02/07/2017 07:43:Leann Smith RN) Organ Donor: Yes (02/07/2017 07:43:Leann Smith RN) Pt Rights Information Given: Yes (02/07/2017 07:43:Leann Smith RN) Pt Understands Pt Rights: Yes (02/07/2017 07:43:Leann Smith RN) LEARNING ASSESSMENT Knowledge Level: Understands L_D Process; Understands Care Activities; Had Pre-Hospital Education; Understands Diagnosis (02/07/2017 07:43:Leann Smith RN) Barriers to Learning: None (02/07/2017 07:43:Leann Smith RN) Learning Readiness: Motivated (02/07/2017 07:43:Leann Smith RN) Learns Best By: 1 to 1 Instruction; Demonstration (02/07/2017 07:43:Leann Smith RN) Learning Needs: Labor and Delivery Process; Pain Management; Symptoms to Report; Treatment Plan; Medication; Diagnosis; Nutrition; Equipment; Care (02/07/2017 07:43:Leann Smith RN) DOMESTIC VIOLANCE SCREENING Dom Viol Threatened/Hurt: No (02/07/2017 07:43:Leann Smith RN) Hx of Abuse/Neglect past 2yrs: No (02/07/2017 07:43:Leann Smith RN) Feel Unsafe Going Home: No (02/07/2017 07:43:Leann Smith RN) Addt'l Observ Indicating Abuse: No (02/07/2017 07:43:Leann Smith RN) Reason Unable to Complete Screen: N/A, Screen Completed (02/07/2017 07:43:Leann Smith RN) Considered Personal Harm/Suicide: No (02/07/2017 07:43:Leann Smith RN) NUTRITIONAL/FUNCTIONAL SCREENING Problem with Appetite >5 Days: No (02/07/2017 07:43:Leann Smith RN) Chew/Swallow Difficulties: No (02/07/2017 07:43:Leann Smith RN) Inappropriate Wt Gain/Loss: No (02/07/2017 07:43:Leann Smith RN) Presence Skin Breakdown/Ulcer: No (02/07/2017 07:43:Leann Smith RN) Special Diet: No (02/07/2017 07:43:Leann Smith RN) Pt Requests Wrapper Layer And Examiner Soft Work Visit: No (02/07/2017 07:43:Leann Smith RN) Hx of Any of the Following?: N/A (02/07/2017 07:43:Leann Smith RN) New Diagnosis of: N/A (02/07/2017 07:43:Leann Smith RN) Requires Assist w/Ambulation: No (02/07/2017 07:43:Leann Smith RN) Uses Assist Device to Ambulate: No (02/07/2017 07:43:Leann Smith RN) Pt Requires Help w/ADL's: No (02/07/2017 07:43:Leann Smith RN)
--- NOTE | 2017-02-08 06:01 | L&D General Admission ---
General Admit Datetime Report Generated by CPN: 02/08/2017 06:00 INFORMATION Patient Age: 31 (01/29/2017 12:03:QS system process) EDC: 03/09/2017 00:00 (01/29/2017 12:16:CORETTA Granger) : 2 (01/29/2017 12:16:Clarissa Richards RN) Para: 0 (01/29/2017 12:16:Clarissa Richards RN) Term: 0 (01/29/2017 12:16:Clarissa Richards RN) : 0 (01/29/2017 12:16:Clarissa Richards RN) Spontaneous Abortions: 0 (01/29/2017 12:16:Clarissa Richards RN) Induced Abortions: 1 (01/29/2017 12:16:Clarissa Richards RN) Livin (01/29/2017 12:16:Clarissa Richards RN) Cesareans: 0 (01/29/2017 12:16:Clarissa Richards RN) VBACs: 0 (01/29/2017 12:16:Clarissa Richards RN) Ectopic: 0 (01/29/2017 12:16:Clarissa Richards RN) Multiple Births: 0 (01/29/2017 12:16:Clarissa Richards RN) Baby, Number in Womb: 1 (01/29/2017 12:16:Clarissa Richards RN) CARE Primary Reserve Officer: [facility] (01/29/2017 12:16:CORETTA Granger) Adequate Care: Yes (01/29/2017 12:16:Marti Singh RN) Height (in): 64 (02/07/2017 15:45:QS system process) ALLERGIES Medication Allergy: No (01/29/2017 12:16:Clarissa Richards RN) Medication Allergies: No Known Allergies (02/07/2017) (02/07/2017 08:08:QS system process) Latex Allergy: No Latex Allergies (01/29/2017 12:16:Clarissa Richards RN) Food Allergies: None (01/29/2017 12:16:Leann Smith RN) Environmental Allergies: None (01/29/2017 12:16:Leann Smith RN) COMMUNICATION Primary Language: Niuean (01/29/2017 12:16:Clarissa Richards RN) Medical Tx Preferred Language: Niuean (01/29/2017 12:16:Clarissa Richards RN) Communication Barrier(s): None (01/29/2017 12:16:Leann Smith RN) DEMOGRAPHICS Address: [address] [place] [id number] (01/29/2017 12:03:QS system process) Zipcode: [address] (01/29/2017 12:03:QS system process) Home (01/29/2017 12:03:QS system process) Work (01/29/2017 12:03:QS system process) SSN: [id number] (01/29/2017 12:03:QS system process) Next of Kin Name: ISAAC YAO (01/29/2017 12:03:QS system process) Next of Kin (01/29/2017 12:03:QS system process) Next of Kin Relationship: OR (01/29/2017 12:03:QS system process) Date of : 1985 (01/29/2017 12:03:QS system process) Marital Status: Single (01/29/2017 12:03:QS system process) Sex: Female (01/29/2017 12:03:QS system process) Race: (01/29/2017 12:03:QS system process) Ethnicity: Non- or (01/29/2017 12:03:QS system process) Christian: None (01/29/2017 12:03:QS system process) DRUG AND ALCOHOL USE Alcohol: No (01/29/2017 12:16:Clarissa Richards RN) Cigarettes: Former Smoker. [id number] (01/29/2017 12:16:Clarissa Richards RN) Marijuana: No (01/29/2017 12:16:Clarissa Richards RN) Cocaine: No (01/29/2017 12:16:Clarissa Richards RN) Other Illicit Drugs: No (01/29/2017 12:16:Clarissa Richards RN) VACCINE HISTORY Influenza Vaccine: Yes (01/29/2017 12:16:Clarissa Richards RN) Influenza Date: 10/2016 (01/29/2017 12:16:Clarissa Richards RN) Pneumococcal Vaccine: No (01/29/2017 12:16:Clarissa Richards RN) Tetanus Vaccine: No (01/29/2017 12:16:Clarissa Richards RN) Tdap Vaccine: No (01/29/2017 12:16:Clarissa Richards RN) Hepatitis B Vaccine: No (01/29/2017 12:16:Clarissa Richards RN) Photographic Platemaker: [facility] (01/29/2017 12:16:Leann Smith RN) Feeding Preference: Breast (01/29/2017 12:16:Clarissa Richards RN) Benefit of Breast Feed Discussed: Yes (01/29/2017 12:16:Clarissa Richards RN) Circumcision: N/A (01/29/2017 12:16:Clarissa Richards RN) Classes Attended: No (01/29/2017 12:16:Clarissa Richards RN) Tubal Ligation: No (01/29/2017 12:16:Clarissa Richards RN) Tubal Authorization Signed: N/A (01/29/2017 12:16:Clarissa Richards RN) Consent: N/A (01/29/2017 12:16:Clarissa Richards RN) Consent Signed: N/A (01/29/2017 12:16:Clarissa Richards RN) Pain Management Plans: Epidural (01/29/2017 12:16:Clarissa Richards RN) Plans for Labor and Delivery: Plan (01/29/2017 12:16:Clarissa Richards RN) Support Person: Isaac Yao (01/29/2017 12:16:Clarissa Richards RN) Support Person Relationship: Significant Other (01/29/2017 12:16:Clarissa Richards RN) Cultural/Spritual Practice: Isabelle (01/29/2017 12:16:Clarissa Richards RN) Spir/Cult Dietary Needs: No (01/29/2017 12:16:Clarissa Richards RN) LIVING SITUATION/DISCHARGE PLAN Living Arrangements: House (01/29/2017 12:16:Clarissa Richards RN) Adequate Access to:: Electric; Heat; Refrigeration; Plumbing/Running water; Phone; Transportation (01/29/2017 12:16:Clarissa Richards RN) WIC Program: Yes (01/29/2017 12:16:Clarissa Richards RN) Discharge Telecommunication Equipment Repairer Person: BISHOP (01/29/2017 12:16:Clarissa Richards RN) Person to Help after Discharge: BISHOP (01/29/2017 12:16:Clarissa Richards RN) Currently Using Commun Resources: Isabelle (01/29/2017 12:16:Clarissa Richards RN) Outside Agency/Identification And Records Commander: Isabelle (01/29/2017 12:16:Clarissa Richards RN) Car Seat for Discharge: No (01/29/2017 12:16:Marti Singh RN) Adoption Requested: No (01/29/2017 12:16:Clarissa Richards RN) Pt Contact w/ Post : N/A (01/29/2017 12:16:Clarissa Richards RN) LABS Blood Type: A Negative (01/29/2017 12:16:Leann Smith RN) Hemoglobin: 11.6 L (02/07/2017 08:13:QS system process) Hematocrit: 35.9 L (02/07/2017 08:13:QS system process) MCV: 78 L (02/07/2017 08:13:QS system process) Group Beta Strep: 1 NO GROUP B STREPTOCOCCUS RECOVERED (02/05/2017 10:14:QS system process) Gonorrhea: Negative (01/29/2017 12:16:Leann Smith RN) Chlamydia: Negative (01/29/2017 12:16:Leann Smith RN) RPR/VDRL: Nonreactive (01/29/2017 12:16:Leann Smith RN) HIV Exposure Test: Negative (01/29/2017 12:16:Leann Smith RN) Hepatitis B: Negative (01/29/2017 12:16:Leann Smith RN) Rubella: Immune (01/29/2017 12:16:Leann Smith RN) OB/PREVIOUS HISTORY Current Procedures: Ultrasound; NST (01/29/2017 12:16:Clarissa Richards RN) History of Previous : No (01/29/2017 12:16:Clarissa Richards RN) History of Gestational Diabetes: Yes (01/29/2017 12:16:Clarissa Richards RN) History of PIH: No (01/29/2017 12:16:Clarissa Richards RN) History of Incompetent Cervix: No (01/29/2017 12:16:Clarissa Richards RN) History of Placenta Previa/Abrup: No (01/29/2017 12:16:Clarissa Richards RN) History of Macrosomia: No (01/29/2017 12:16:Clarissa Richards RN) History of IUGR: No (01/29/2017 12:16:Clarissa Richards RN) History of Hemorrhage: No (01/29/2017 12:16:Clarissa Richards RN) History of Loss/Stillborn: No (01/29/2017 12:16:Clarissa Richards RN) History of : No (01/29/2017 12:16:Clarissa Richards RN) History of D (Rh) Sensitization: No (01/29/2017 12:16:Clarissa Richards RN) History Recurrent Loss/Stillborn: No (01/29/2017 12:16:Clarissa Richards RN) History Depression/PP Depression: No (01/29/2017 12:16:Clarissa Richards RN) History of Uterine Anomaly/RUBIO: No (01/29/2017 12:16:Clarissa Richards RN) History of Infertility: No (01/29/2017 12:16:Clarissa Richards RN) History of ART Treatment: No (01/29/2017 12:16:Clarissa Richards RN) History of RUBIO: No (01/29/2017 12:16:Clarissa Richards RN) Comments Obstetrical History: G1: EAB, 05/2014 G2: Current, GDM (01/29/2017 12:16:Clarissa Richards RN) MEDICAL HISTORY Med Hx Diabetes: Yes (01/29/2017 12:16:Clarissa Richards RN) Diabetes Type: Gestational Diabetes (01/29/2017 12:16:Clarissa Richards RN) Med Hx Hypertension: No (01/29/2017 12:16:Clarissa Richards RN) Med Hx Heart Disease: No (01/29/2017 12:16:Clarissa Richards RN) Med Hx Autoimmune Disorder: No (01/29/2017 12:16:Clarissa Richards RN) Med Hx Kidney Disease/UTI: No (01/29/2017 12:16:Clarissa Richards RN) Med Hx Neurologic/Epilepsy: No (01/29/2017 12:16:Clarissa Richards RN) Med Hx Psychiatric Disorders: No (01/29/2017 12:16:Clarissa Richards RN) Med Hx Hepatitis/Liver Disease: No (01/29/2017 12:16:Clarissa Richards RN) Med Hx Varicosities/Phlebitis: No (01/29/2017 12:16:Clarissa Richards RN) Med Hx Thyroid Dysfunction: No (01/29/2017 12:16:Clarissa Richards RN) Med Hx Trauma/Violence: No (01/29/2017 12:16:Clarissa Richards RN) Med Hx Blood Transfusion: No (01/29/2017 12:16:Clarissa Richards RN) Med Hx Pulmonary (Asthma,TB): Yes (01/29/2017 12:16:Clarissa Richards RN) Med Hx Breast: No (01/29/2017 12:16:Clarissa Richards RN) 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 (01/29/2017 12:16:Clarissa Richards RN) Med Hx Hospitalization/Surgery: No (01/29/2017 12:16:Clarissa Richards RN) Med Hx Anesthetic Complications: No (01/29/2017 12:16:Clarissa Richards RN) Med Hx Abnormal Pap Smear: Yes (01/29/2017 12:16:Clarissa Richards RN) Other Medical Diseases: No (01/29/2017 12:16:Clarissa Richards RN) Med Hx Significant Family Hx: No (01/29/2017 12:16:Clarissa Richards RN) Details of Med/Surg Hx: asthma, reoccuring abnl paps, reoccuring BV (01/29/2017 12:16:Clarissa Richards RN) INFECTIOUS HISTORY Inf Hx Gonorrhea: Yes (01/29/2017 12:16:Clarissa Richards RN) Inf Hx Chlamydia: Yes (01/29/2017 12:16:Clarissa Richards RN) Inf Hx Syphilis: No (01/29/2017 12:16:Clarissa Richards RN) Inf Hx HIV/AIDS: No (01/29/2017 12:16:Clarissa Richards RN) Inf Hx Human Papilloma Virus: No (01/29/2017 12:16:Clarissa Richards RN) Inf Hx Pt/Partner Genital Herpes: No (01/29/2017 12:16:Clarissa Richards RN) Inf Hx Tuberculosis/Exposure: No (01/29/2017 12:16:Clarissa Richards RN) Inf Hx Hepatitis B,C: No (01/29/2017 12:16:Clarissa Richards RN) Inf Hx Rash or Viral Illness: No (01/29/2017 12:16:Clarissa Richards RN) Details of Infectious Hx: BV, oral gonorrhea 2010 , chlamydia 2008 and 2010 (01/29/2017 12:16:Clarissa Richards RN) GENETIC HISTORY Gen Hx Age >=35 at [facility]: No (01/29/2017 12:16:Clarissa Richards RN) Gen Hx Thalassemia: No (01/29/2017 12:16:Clarissa Richards RN) Gen Hx Congenital Heart Defect: No (01/29/2017 12:16:Clarissa Richards RN) Gen Hx Neural Tube Defect: No (01/29/2017 12:16:Clarissa Richards RN) Gen Hx Down's Syndrome: No (01/29/2017 12:16:Clarissa Richards RN) Gen Hx Ronan-Sachs: No (01/29/2017 12:16:Clarissa Richards RN) Gen Hx Kavya: No (01/29/2017 12:16:Clarissa Richards RN) Gen Hx Familial Dysautonomia: No (01/29/2017 12:16:Clarissa Richards RN) Gen Hx Sickle Cell Disease/Trait: No (01/29/2017 12:16:Clarissa Richards RN) Gen Hx Hemophilia/Blood Disorder: No (01/29/2017 12:16:Clarissa Richards RN) Gen Hx Muscular Dystrophy: No (01/29/2017 12:16:Clarissa Richards RN) Gen Hx Cystic Fibrosis: No (01/29/2017 12:16:Clarissa Richards RN) Gen Hx Huntingtons Chorea: No (01/29/2017 12:16:Clarissa Richards RN) Gen Hx Mental Retardation/Autism: No (01/29/2017 12:16:Clarissa Richards RN) Gen Hx Tested for Fragile X: No (01/29/2017 12:16:Clarissa Richards RN) Gen Hx Other Inher/Chromosomal: No (01/29/2017 12:16:Clarissa Richards RN) Gen Hx Maternal Metabolic DO: No (01/29/2017 12:16:Clarissa Richards RN) Gen Hx Pt Father or FOB Defect: No (01/29/2017 12:16:Clarissa Richards RN) Gen Hx Other Genetic History: No (01/29/2017 12:16:Clarissa Richards RN) Gen Hx Drugs/Meds since LMP: Yes (01/29/2017 12:16:Clarissa Richards RN) Gen Hx Medications: PNV, Glyburide, Proair, antibiotics, antacids, ibuprofen (01/29/2017 12:16:Clarissa Richards RN)
--- NOTE | 2017-02-08 06:16 | L&D Care Plan ---
LD CARE PLANS Datetime Report Generated by CPN: 02/08/2017 06:15 Datetime: 02/07/2017 08:08 State: Actual (Clarissa Matthew RN) Related To: Labor and Delivery Process; Treatment and Procedures (Clarissa Matthew RN) Goal(s): Patients Pain will be Assessed and Managed; Patient will Verbalize Adequate Relief of Pain or the Ability to [place] with Current Pain (Clarissa Matthew RN) Interventions: Assess Pain Severity on Scale of 0 (None) to 5 (Severe); Assess Type, Location and Intensity of Pain Each Time Client Reports Discomfort and Notify Provider if Unusal Pain Develops; Encourage Proper Breathing and Relaxation Techniques; Offer Alternatives Such as Repositioning, Calm Environment, Massages, Diversional Activities, Ice Pack, Splinting, and Ambulation; Administer Analgesics as Ordered; Assist with Epidural Placement as Appropriate; Evaluate Therapeutic Effectiveness of Medication and Treatments (Clarissa Matthew RN) Outcome: Patient will Report Absence or Relief of Pain Consistent with Established Pain Goal (Clarissa Matthew RN) Status: Ongoing (Clarissa Matthew RN) Outcome: Patient will have a Decrease in Signs and Symptoms of Discomfort (Clarissa Matthew RN) Status: Ongoing (Clarissa Matthew RN) Outcome: Pain will be Controlled During Procedures (Clarissa Matthew RN) Status: Ongoing (Clarissa Matthew RN) State: Risk For (Clarissa Matthew RN) Related To: Labor and Delivery Process; Medical Interventions (Clarissa Matthew RN) Goal(s): Patient will have Decreased Anxiety and be able to Function at Acceptable Levels (Clarissa Matthew RN) Interventions: Assess Verbal and Nonverbal Behavioral Indicators of Anxiety; Assist Patient to Identify and Verbalize Symptoms of Anxiety; Identify and Demonstrate Techniques to Control Anxiety; Assist Patient with Coping Mechanisms to Manage Anxiety; Provide Theraputic Touch for the Patient; Explain to Patient, Using a Calm Reassuring Approach and Nonmedical Terms, All Activities, Procedures, and Concerns; Instruct Patient and Family about Post Discharge Care, Limitations, Symptoms to Report and Resources Available (Clarissa Matthew RN) Outcome: Patient will Identify, Verbalize and Demonstrate Techniques to Control Anxiety (Clarissa Matthew RN) Status: Ongoing (Clarissa Matthew RN) Outcome: Patient's Posture, Facial Expressions, Gestures and Activity Level will Reflect Decreased Anxiety (Clarissa Matthew RN) Status: Ongoing (Clarissa Matthew RN) Outcome: Patient will Verbalize a Sense of Control and/or Acceptance of the Situation (Clarissa Matthew RN) Status: Ongoing (Clarissa Matthew RN) Outcome: Patient will Identify and Utilize Support Person (Clarissa Matthew RN) Status: Ongoing (Clarissa Matthew RN) State: Actual (Clarissa Matthew RN) Related To: Labor and Delivery Process; Treatment and Procedures (Clarissa Matthew RN) Goal(s): Patient will Accurately Verbalize Understanding of Plan of Care and Treatment; Patient and Family will Accurately Verbalize Understanding of the Disease Process (Clarissa Matthew RN) Interventions: Assess Motivation and Willingness of Patient/Family to Learn; Assess Preferred Learning Mode: One to One Instruction, Reading, Videos, Group Discussion or Demonstration; Assess Barriers to Learning: Pain, Emotional State, Language Barrier, Cognitive Impairment, Visual or Hearing Deficits; Assess Patient and Family Knowledge of Disease Process, Medications and Treatment; Discuss Therapy and/or Treatment Options, Describe Rationale Behind Management, Therapy and Treatment Recommendations; Instruct Patient and Family on Signs and Symptoms to Report; Instruct Patient and Family on Medication Effects and Side Effects; Provide Appropriate and Timely Education Using Multiple Techniques; Provide Patient and Family with Support Group Information and Resources; Give Clear and Thorough Explanations and Demonstrations (Clarissa Matthew RN) Outcome: Patient and Family will Verbalize Understanding of Condition, Treatment and Signs and Symptoms to Report (Clarissa Matthew RN) Status: Ongoing (Clarissa Matthew RN) Outcome: Patient will Identify Perceived Learning Needs and Express Motivation to Learn (Clarissa Matthew RN) Status: Ongoing (Clarissa Matthew RN) Outcome: Patient will Verbalize Understanding of Desired Content, and/or Performs Desired Skill Prior to Discharge (Clarissa Matthew RN) Status: Ongoing (Clarissa Matthew RN) State: Risk For (Clarissa Matthew RN) Related To: Premature/Prolonged Rupture of Membranes (Clarissa Matthew RN) Goal(s): The Patient will be Free of Infection, Vital Signs Stable and Lab Work within Normal Parameters (Clarissa Matthew RN) Interventions: Instruct and Reinforce Proper Handwashing, Hygiene, and Care Techniques to Patient and Family; Monitor Vital Signs; Monitor Patient for the Following Signs of Infection: Fever, Abdominal Tenderness, Unusual Discharge; Monitor Aminiotic Fluid, Urine and Lochia for Color and Odor; Observe Wounds, Incisions and Invasive Line Sites for Redness, Drainage and Edema; Assess IV Sites per Hospital Policy; Monitor Lab and Test Results and Notify Provider of Abnormal Findings; Assess Nutritional Status and Promote Good Nutrition (Clarissa Matthew RN) Outcome: Patient will Remain Free of Infection (Clarissa Matthew RN) Status: Ongoing (Clarissa Matthew RN) Outcome: Infection will be Recognized Early to Allow for Prompt Treatment (Clarissa Matthew RN) Status: Ongoing (Clarissa Matthew RN) Outcome: Patient will have Vital Signs Within Expected Range (Clarissa Matthew RN) Status: Ongoing (Clarissa Matthew RN) State: Risk For (Clarissa Matthew RN) Related To: Prolonged Labor or Induction (Clarissa Matthew RN) Goal(s): Patient will Achieve and Maintain a Balanced Fluid Volume Status; Hemodynamically Stable (Clarissa Matthew RN) Interventions: Monitor Vital Signs; Auscultate Breath Sounds; Monitor Patient for Skin Turgor, Mucous Membranes, Dry Skin, Weakness, Headaches and Confusion; Provide Oral Fluids as Ordered; Initiate and Maintain Intravenous Fluids as Ordered; Monitor Intake and Output as Indicated Per Patient Status; Accurately Measure Blood Loss; Monitor Lab and Test Results as Obtained and Notify Provider of Abnormal Findings; Monitor Patient's Weight (Clarissa Matthew RN) Outcome: Patient will have Clear Lung Sounds (Clarissa Matthew RN) Status: Ongoing (Clarissa Matthew RN) Outcome: Patient will have Vital Signs within Expected Range (Clarissa Matthew RN) Status: Ongoing (Clarissa Matthew RN) Outcome: Urine Output will be within Expected Range (Clarissa Matthew RN) Status: Ongoing (Clarissa Matthew RN) Outcome: Patient will have Minimal Generalized or Upper Extremity Edema (Clarissa Matthew RN) Status: Ongoing (Clarissa Matthew RN) State: Risk For (Clarissa Matthew RN) Related To: Labor and Delivery Process (Clarissa Matthew RN) Goal(s): Patient will Remain Free from Injury (Clarissa Matthew RN) Interventions: Monitoring as per Hospital Protocol; Assess Neurological Status; Perform Risk Assessment of Patients with Induction and ; Perform Fall Risk Assessment and Prevention per Hospital Protocol; Perform DVT Risk Assessment and Prophylaxis per Hospital Protocol; Ensure that Oxygen, Suction, and Resuscitation Medications and Equipment are Readily Available; Confirm Patient ID Prior to Procedure(s) and Medication Administration per Hospital Policy (Clarissa Matthew RN) Outcome: Successful Fall Risk Prevention (Clarissa Matthew RN) Status: Ongoing (Clarissa Matthew RN) Outcome: Patient will Deliver without Adverse [place] (Clarissa Matthew RN) Status: Ongoing (Clarissa Matthew RN) Outcome: Patient's Neurological Status will Remain Stable (Clarissa Matthew RN) Status: Ongoing (Clarissa Matthew RN) State: Risk For (Clarissa Matthew RN) Related To: Vaginal Delivery (Clarissa Matthew RN) Goal(s): Patient will Maintain Optimal Skin Integrity, Free of Breakdown, Injury or Infection (Clarissa Matthew RN) Interventions: Complete Screening for Pressure Ulcer Risk and Initiate Protocol per Hospital Policy; Monitor Site of Skin Impairment for Color Changes, Redness, Swelling, Warmth, Pain or Other Signs of Infection; Encourage and Assist with Position Changes; Monitor Patient's Mobility Status; Provide Adequate Nutrition and Fluids; Teach Patient Appropriate Hygienic Care; Teach Patient/Family Skin Care Management (Clarissa Matthew RN) Outcome: Patient will not have Evidence of Injury Such as Skin Breakdown, Scrapes, Cuts, or Bruising (Clarissa Matthew RN) Status: Ongoing (Clarissa Matthew RN) Outcome: Patient will Report Any Altered Sensation or Pain at Site of Skin Impairment (Clarissa Matthew RN) Status: Ongoing (Clarissa Matthew RN) Outcome: Patients Incisions and Wounds will be without Signs or Symptoms of Infection (Clarissa Matthew RN) Status: Ongoing (Clarissa Matthew RN) Outcome: Patient will Demonstrate Understanding of Plan to Heal Skin and Prevent Reinjury and Verbalize Risk Factors (Clarissa Matthew RN) Status: Ongoing (Clarissa Matthew RN) State: Not Applicable (Clarissa Matthew RN) State: Not Applicable (Clarissa Matthew RN) State: Not Applicable (Clarissa Matthew RN) State: Not Applicable (Clarissa Matthew RN)
[2017-02-08 07:03] LABS: HEMATOCRIT 34.8 % (36.0-47.0); HEMOGLOBIN 11.3 g/dL (12.0-15.5); HGB HCT DIFFERENCE -0.9; MEAN CORPUSCULAR HEMOGLOBIN 25.4 pg (27.0-33.4); MEAN CORPUSCULAR HGB CONC 32.5 g/dL (32.0-36.0); MEAN CORPUSCULAR VOLUME 78 fl (80-97); RED BLOOD COUNT 4.45 10^6/uL (3.72-5.28); RED CELL DISTRIBUTION WIDTH 14.5 % (11.5-14.0); WHITE BLOOD COUNT 12.9 10^3/uL (4.0-10.5)
[2017-02-08] MEDS: DOCUSATE SODIUM 100 MG CAPSULE PO SCH ×2 (09:12→17:04)
[2017-02-08] MEDS: FERROUS SULFATE 325 MG TABLET PO SCH ×2 (09:12→17:04)
[2017-02-08] MEDS: PRENATAL VITAMIN W-O CA NO5/FE FUMARATE/FA CAPSULE PO SCH (09:12)
[2017-02-08] MEDS: SENNOSIDES/DOCUSATE 8.6-50 MG 1 EACH TABLET PO SCH (09:12)
--- NOTE | 2017-02-08 11:06 | PDOC PROGRESS REPORT ---
Subjective-OB Subjective: Post Delivery Day: 31 year old. Denies any needs at this time. Pt doing well, no complaints. She reports light bleeding, regular diet and voiding well. Physical Exam (OB) Vital Signs: Temp Pulse Resp BP Pulse Ox 98.4 F 83 16 115/78 100 02/08/17 07:53 02/08/17 07:53 02/08/17 07:53 02/08/17 07:53 02/08/17 07:53 Intake & Output 02/07/17 02/08/17 02/09/17 06:59 06:59 06:59 Intake Total 480 Balance 480 Weight 86.85 kg - Lochia Lochia Amount: Scant < 10 ml Lochia Color: Rubra/Red - Abdomen Description: Tender, Soft, Round Hernia Present: No Fundal Description: Firm, Midline Fundal Height: u/u - u/2 Objective-Diagnostic Laboratory: 02/08/17 06:50 02/08/17 06:50 WBC 12.9 H RBC 4.45 Hgb 11.3 L Hct 34.8 L MCV 78 L MCH 25.4 L MCHC 32.5 RDW 14.5 H Plt Count 242 Assessment and Plan(PN) - Assessment and Plan (1) Vaginal delivery Is this a current diagnosis for this admission?: Yes - Time Spent with Patient Time with patient: Less than 15 minutes Medications reviewed and adjusted accordingly: Yes - Disposition Anticipated Discharge: Home Within: within 24 hours
[2017-02-08] MEDS ORDERED: MECLIZINE HCL 25 MG TABLET PO PRN (18:40)
[2017-02-08] MEDS ORDERED: MECLIZINE HCL 25 MG TABLET ONE (18:48)
[2017-02-09] MEDS: IBUPROFEN 800 MG TABLET PO SCH ×2 (06:16→13:15)
[2017-02-09 07:54] VITALS: BP 125/87
--- NOTE | 2017-02-09 09:10 | PDOC DISCHARGE SUMMARY ---
Final Diagnosis Discharge Date: 02/09/17 Discharge Data - Discharge Medication Home Medications: Pnv No.122/Iron/Folic Acid [ Multi Tablet] 1 tab PO DAILY 01/29/17 Albuterol Sulfate [Proair HFA] 1 - 2 puff IH Q4 PRN 02/02/17 Meclizine HCl 25 mg PO TID PRN #30 tab.chew 02/04/17 Gestational Age: 35 wk Reason(s) for Admission: Onset of Labor Admission Note: She was admitted in labor. Intrapartum Procedure(s): Spontaneous Vaginal Delivery - Diagnosis Test Laboratory: Temp Pulse Resp BP Pulse Ox 97.5 F 70 16 125/87 H 100 02/09/17 08:05 02/09/17 08:05 02/09/17 08:05 02/09/17 07:51 02/09/17 08:05 02/07/17 02/07/17 02/08/17 07:30 08:13 06:50 RBC 4.59 4.45 Hgb 11.6 L 11.3 L Hct 35.9 L 34.8 L Urine Opiates Screen NEGATIVE - Discharge information/Instructions Discharge Activity: Activity As Tolerated, No Lifting Over 10 Pounds, Pelvic Rest, No tub bath Discharge Diet: Regular Disposition: HOME, SELF-CARE Follow up with: [facility] in: 4
[2017-02-09] MEDS: SENNOSIDES/DOCUSATE 8.6-50 MG 1 EACH TABLET PO SCH (10:49)
[2017-02-09] MEDS: FERROUS SULFATE 325 MG TABLET PO SCH ×2 (10:49→18:02)
[2017-02-09] MEDS: PRENATAL VITAMIN W-O CA NO5/FE FUMARATE/FA CAPSULE PO SCH (10:49)
[2017-02-09] MEDS: DOCUSATE SODIUM 100 MG CAPSULE PO SCH ×2 (10:49→18:02)
== END 2017-02-09 19:15 | disposition home or self-care (01) | DRG 775 ==
LOC: LC 07:13 → LR 08:08 → 2S 15:44
PROVIDERS: ADMIT Obstetrics & Gynecology; ATTEND Obstetrics & Gynecology
PROC: 10E0XZZ Delivery of Products of Conception, External Approach (ICD-10-PCS; principal; 2017-02-07)
DX: O60.14X0 Preterm labor third trimester with preterm delivery third trimester, not applicable or unspecified (principal); O24.429 Gestational diabetes mellitus in childbirth, unspecified control; Z3A.35 35 weeks gestation of pregnancy; Z37.0 Single live birth
CPT/HCPCS: 36415; 59025; 80307; 81001; 82962; 84112; 85025; 85027; 86592; 86850; 86870; 86900; 86901; 88307; J2540; J2590; J3490

== ENCOUNTER 2018-10-04 15:08 | Emergency (ER) | payer BC, MEDICAID ==
--- NOTE | 2018-10-04 16:09 | ER Document Report ---
ED Medical Screen (RME) - General Chief Complaint: Eye Pain Stated Complaint: EYE PROBLEM Time Seen by Provider: 10/04/18 16:03 Notes: 33-year-old female patient with right eye pain for 3-4 months. Recently worse with blurred vision and the eye being red. The eye has been dilated for the past 24 hours or more. Brief exam suggest glaucoma with the eyes red, it is tender and feels a little firm, the pupil is a little dilated but reactive and is located a little higher than the middle of the eye. Patient was moved into the main ED expeditiously for ocular exam and treatment. I have greeted and performed a rapid initial assessment of this patient. A comprehensive ED assessment and evaluation of the patient, analysis of test results and completion of the medical decision making process will be conducted by additional ED providers. TRAVEL OUTSIDE OF THE [place] IN LAST 30 DAYS: No - Related Data Allergies/Adverse Reactions: No Known Allergies Allergy (Verified 02/07/17 08:08) Past Medical History Renal/ Medical History: Denies: Hx Peritoneal Dialysis - Immunizations Hx Diphtheria, Pertussis, Tetanus Vaccination: Yes Physical Exam - Vital signs Vitals: Temp Pulse Resp BP Pulse Ox 97.4 F 72 16 133/88 H 98 10/04/18 15:18 10/04/18 15:18 10/04/18 15:18 10/04/18 15:18 10/04/18 15:18 Course - Vital Signs Vital signs: Temp Pulse Resp BP Pulse Ox 97.4 F 72 16 133/88 H 98 10/04/18 15:18 10/04/18 15:18 10/04/18 15:18 10/04/18 15:18 10/04/18 15:18 Doctor's Discharge - Discharge Referrals: TSERING SANDERS MD [Primary Care Provider] - Follow up as needed
[2018-10-04 17:08] LABS: ABSOLUTE BASOPHILS # (AUTO) 0.1 10^3/uL (0.0-0.2); ABSOLUTE EOSINOPHILS # (AUTO) 0.2 10^3/uL (0.0-0.6); ABSOLUTE MONOCYTES (AUTO) 0.6 10^3/uL (0.1-1.4); ABSOLUTE NEUT (AUTO) 3.4 10^3/uL (1.7-8.2); BASOPHILS % (AUTO) 0.9 % (0-2); EOSINOPHILS % (AUTO) 2.5 % (0-6); HEMATOCRIT 39.6 % (36.0-47.0); HEMOGLOBIN 13.1 g/dL (12.0-15.5); LYMPHOCYTES % (AUTO) 40.9 % (13-45); MEAN CORPUSCULAR HEMOGLOBIN 26.2 pg (27.0-33.4); MEAN CORPUSCULAR HGB CONC 33.2 g/dL (32.0-36.0); MEAN CORPUSCULAR VOLUME 79 fl (80-97); MONOCYTES % (AUTO) 8.6 % (3-13); PLATELET COUNT 332 10^3/uL (150-450); RED BLOOD COUNT 5.01 10^6/uL (3.72-5.28); RED CELL DISTRIBUTION WIDTH 13.8 % (11.5-14.0); SEGMENTED NEUTROPHILS % (AUTO) 47.1 % (42-78); TOTAL CELLS COUNTED % (AUTO) 100 %; WHITE BLOOD COUNT 7.2 10^3/uL (4.0-10.5)
[2018-10-04 17:28] LABS: ANION GAP 13 (5-19); BLOOD UREA NITROGEN 13 mg/dL (7-20); CALCIUM 9.6 mg/dL (8.4-10.2); CARBON DIOXIDE 28 mmol/L (22-30); CHLORIDE 100 mmol/L (98-107); GLUCOSE 86 mg/dL (75-110); POTASSIUM 3.5 mmol/L (3.6-5.0); SODIUM 140.9 mmol/L (137-145)
--- NOTE | 2018-10-04 17:28 | ER Document Report ---
ED Eye Complaint - General Information source: Patient TRAVEL OUTSIDE OF THE [place] IN LAST 30 DAYS: No - HPI Onset: Other - See above Eye location: Right Injury: No Occurred at: Home Quality of pain: Achy Severity: Mild Pain Level: 1 Contact lenses worn: No Associated symptoms: Other - See above <RONDA BASS - Last Filed: 10/04/18 18:16> <DAVIDEEUNICE - Last Filed: 10/04/18 20:18> - General Chief Complaint: Eye Pain Stated Complaint: EYE PROBLEM Time Seen by Provider: 10/04/18 16:03 Notes: Patient is a 33-year-old female who presents today stating some nontraumatic redness and discomfort to the right eye. She states that this started to intensify around 2 days ago but has been slightly present for a month or so. She states she has some blurry vision to the right eye. She denies any symptomatology to the left eye. She states she has had a very mild 3 out of 10 maximum headache since Thursday that is intermittent in nature. She denies any neck pain. She denies any weakness or numbness to the arms or legs. She denies a history of similar symptomatology. Patient does not wear contacts or glasses. (RONDA BASS) - Related Data Allergies/Adverse Reactions: No Known Allergies Allergy (Verified 02/07/17 08:08) Past Medical History - Social History Smoking Status: Current Some Day Smoker Chew tobacco use (# tins/day): No Frequency of alcohol use: 1-2 times a week Drug Abuse: Marijuana Family History: Reviewed & Not Pertinent Patient has suicidal ideation: No Patient has homicidal ideation: No Renal/ Medical History: Denies: Hx Peritoneal Dialysis - Immunizations Hx Diphtheria, Pertussis, Tetanus Vaccination: Yes <RONDA BASS - Last Filed: 10/04/18 18:16> Review of Systems - Review of Systems Constitutional: denies: Fever EENT: denies: Eye discharge, Nose discharge Cardiovascular: denies: Palpitations Respiratory: denies: Short of breath Gastrointestinal: denies: Vomiting Genitourinary: denies: Dysuria Musculoskeletal: denies: Leg swelling Skin: Other - no hives. denies: Rash Neurological/Psychological: Other - no slurred speech -: Yes All other systems reviewed and negative <RONDA BASS - Last Filed: 10/04/18 18:16> Physical Exam - HEENT Visual acuity- Right eye: 20/25 Visual acuity- Left eye: 20/25 Visual acuity- Both eyes: 20/25 Corrective lenses worn: No <RONDA BASS - Last Filed: 10/04/18 18:16> <CARYL AUGUSTINE - Last Filed: 10/04/18 20:18> - Vital signs Vitals: Temp Pulse Resp BP Pulse Ox 97.4 F 72 16 133/88 H 98 10/04/18 15:18 10/04/18 15:18 10/04/18 15:18 10/04/18 15:18 10/04/18 15:18 Notes: Reviewed vital signs and nursing note as charted by RN. CONSTITUTIONAL: Alert and oriented and responds appropriately to questions. Well -appearing; well-nourished HEAD: Normocephalic; atraumatic EYES: The right sclera is injected. No obvious discharge. No periorbital swelling or erythema. The right pupil is 4-5 mL dilated but reactive. The left pupil is 2 mm and reactive. Patient has full painless extraocular range of motion. Fluorescein examination shows no uptake. Patient's Irving-Pen pressures on the right eye on 19, 20, and 22. Irving-Pen pressures on the unaffected left eye or the same. I am able to clearly see the disc and vessels of the eye with a normal colored sclera, with no obvious hemorrhage. Patient's right visual acuity is 20/25, left is 20/25, and bilaterally is the same ENT: Normal nose; no rhinorrhea; moist mucous membranes; pharynx without lesions noted NECK: Supple without meningismus; non-tender; no carotid bruit; no cervical lymphadenopathy, no masses CARD: Regular rate and rhythm; no murmurs; symmetric distal pulses EXT: Normal ROM in all joints; non-tender to palpation; no edema SKIN: No acute lesions noted NEURO: CN 2-12 intact; 5/5 bilateral upper and lower extremity strength with sensation intact to light touch PSYCH: The patient's mood and manner are appropriate. Grooming and personal hygiene are appropriate. (RONDA BASS) Course - Laboratory Result Diagrams: 10/04/18 16:56 10/04/18 16:56 <RONDA BASS - Last Filed: 10/04/18 18:16> - Laboratory Result Diagrams: 10/04/18 16:56 10/04/18 16:56 <CARYL AUGUSTINE - Last Filed: 10/04/18 20:18> - Re-evaluation Re-evalutation: Given the history and physical examination, with normal-appearing tonometry pressures, with visual acuity as described, with full extraocular range of motion, with the symptoms only affecting the right eye, I have called and spoke to the radiologist who recommended an MRI/MRA of the brain. I have called and relayed the entire story to the manager child, Dr. Olivier, who was kind enough to take my call despite not being emission specialist. He believes given the history and physical that it is most likely a possible optic neuritis. He states that we can call him with the MRI results and he should be able to see the patient in the morning. Patient has had no head trauma and is - [place] in [place]. I do believe MS and a retrobulbar hematoma would be unlikely. Given the symptoms only affecting the right eye, I do believe pseudotumor cerebri to be extremely unlikely. If the MRI is able to rule out an aneurysm, I will call Dr. Olivier once again to discuss the results. 10/04/18 17:32 EKG shows a heart of 64, normal sinus rhythm, normal axis, no ST elevation or depression 10/04/18 18:16 Labs and EKG as recorded. (RONDA BASS) 10/04/18 20:12 Patient received in sign out by Dr. Tavares with MRI, MRA of the brain pending. His word to call back to Dr. Olivier from ophthalmology and discuss MRI findings. I did speak to Dr. Olivier who recommends reassurance and follow-up in his office. No home-going medications were recommended at this time. (CARYL AUGUSTINE) - Vital Signs Vital signs: Temp Pulse Resp BP Pulse Ox 97.4 F 72 16 133/88 H 98 18 15:18 18 15:18 18 15:18 18 15:18 10/04/18 15:18 - Laboratory Laboratory results interpreted by me: 10/04/18 10/04/18 16:56 16:56 MCV 79 L MCH 26.2 L Potassium 3.5 L Discharge <RONDA BASS - Last Filed: 10/04/18 18:16> <CARYL AUGUSTINE - Last Filed: 10/04/18 20:18> - Discharge Clinical Impression: Corneal erythema of right eye, Blurred vision, right eye Disposition: HOME, SELF-CARE Instructions: Conjunctivitis ([facility]) Additional Instructions: Your imaging and exam today did not show any dangerous reasons for your eye redness and blurred vision. We have consulted a local manager child who believes that it is safe for you to be discharged home with follow-up with ophthalmology in the next 24-48 hours. His contact information has been printed on your discharge instructions. No home-going medications are recommended at this time. Follow up with your [id number] hours for further care or return to the ED IMMEDIATELY if symptoms worsen or you have any concerns. If you cannot afford to follow up with your primary care physician a list of low cost clinics have been provided at the end of your discharge papers as well. M Forms: Elevated Blood Pressure Referrals: TSERING SANDERS MD [ACTIVE STAFF] - Follow up as needed AHMET OLIVIER DO [ACTIVE STAFF] - Follow up tomorrow
--- NOTE | 2018-10-04 18:55 | RADIOLOGY REPORT (SQ) ---
EXAM DESCRIPTION: MRI HEAD WITHOUT COMPLETED DATE/TIME: 10/04/2018 6:29 pm REASON FOR STUDY: 10, right eye pupil dilation with very mild headac COMPARISON: None. TECHNIQUE: Multiplanar imaging includes non-contrasted T1, T2, FLAIR, and diffusion with ADC map seq uences. Images stored on PACS. LIMITATIONS: None. FINDINGS: ANATOMY: No anomalies. Normal vascular flow voids. Pituitary fossa normal. CSF SPACES: Normal in size and contour. No hemorrhage. CEREBRUM: Sulci and gyri normal in size and contour. Normal white matter signal on FLAIR imaging. No evidence of hemorrhage, mass, or extraaxial fluid collection. POSTERIOR FOSSA: No signal alteration. No hemorrhage. No edema, masses or mass effect. Internal david tory canals, cerebello-pontine angles, mastoids normal. DIFFUSION IMAGING: Negative for acute or sub-acute infarction. ORBITS: No masses. Globes normal. PARANASAL SINUSES: No fluid levels. Mucosa normal. OTHER: No other significant finding. IMPRESSION: NORMAL MRI OF THE BRAIN WITHOUT INTRAVENOUS GADOLINIUM CONTRAST. EVIDENCE OF ACUTE STROKE: NO. TECHNICAL DOCUMENTATION: JOB ID: [id number] [employer]- All Rights Reserved Reading location - IP/workstation name: [email or web address]
--- NOTE | 2018-10-04 18:59 | RADIOLOGY REPORT (SQ) ---
EXAM DESCRIPTION: MRA HEAD WITHOUT COMPLETED DATE/TIME: 10/04/2018 6:29 pm REASON FOR STUDY: 10; Dilated right pupil COMPARISON: None. TECHNIQUE: Axial 3-D [id number] acquisition imaging performed through the brain in the area of t he [place] of [place]. Images reformatted using 3-D MIPS. LIMITATIONS: None. FINDINGS: SOURCE IMAGES: No unexpected findings on source images. No large masses. 3-D MIP: No aneurysm. No occlusions. No significant stenosis. OTHER: No other significant finding. IMPRESSION: NORMAL MRA OF THE [place]. TECHNICAL DOCUMENTATION: JOB ID: [id number] [employer]- All Rights Reserved Reading location - IP/workstation name: [email or web address]
--- NOTE | 2018-10-04 20:13 | EKG REPORT ---
SEVERITY:- NORMAL ECG - SINUS RHYTHM : Confirmed by: Luciano Espinosa 04-Oct-2018 20:12:25
[2018-10-04 20:27] VITALS: BP 135/91
== END 2018-10-04 20:26 | disposition home or self-care (01) ==
LOC: ER 15:08
DX: L53.8 Other specified erythematous conditions (principal); H57.11 Ocular pain, right eye; H53.8 Other visual disturbances; F17.200 Nicotine dependence, unspecified, uncomplicated
CPT/HCPCS: 36415; 70544; 70551; 80048; 85025; 93005; 93010; 99283

== ENCOUNTER 2019-04-18 12:03 | Emergency (ER) | payer MEDICAID, OTHER ==
[2019-04-18 12:23] VITALS: BP 118/81
[2019-04-18] MEDS ORDERED: ONDANSETRON 4 MG TAB.RAPDIS PO ONE (12:36)
--- NOTE | 2019-04-18 12:37 | ER Document Report ---
HPI - HPI Time Seen by Provider: 04/18/19 12:34 Pain Level: 4 Notes: Patient is a 33-year-old female no significant past medical history who presents complaining of having a few episodes of nausea, vomiting, and watery diarrhea this morning that has since resolved 2 hours ago. Patient states that she is primarily here for a work note. She otherwise is feeling better and has been able to eat and drink, but does have a decreased p.o. intake. She is urinating normally. Last menstrual period was about 1 to 2 weeks ago. She is not having any other vaginal discharge, odor, or bleeding. Denies drug allergies. No associated pain or discomfort. No other recent illness. Patient states that she did eat some fried pork yesterday, but no other abnormal foods. Denies any headache, fever, URI, sore throat, chest pain, palpitations, syncope, cough, shortness of breath, wheeze, dyspnea, abdominal pain, urinary retention, dysuria, hematuria, or rash. - ROS Systems Reviewed and Negative: Yes All other systems reviewed and negative - REPRODUCTIVE Reproductive: DENIES: : - DERM Skin Color: Normal Past Medical History - Social History Smoking Status: Unknown if Ever Smoked Chew tobacco use (# tins/day): No Frequency of alcohol use: None Drug Abuse: None Family History: Reviewed & Not Pertinent Patient has suicidal ideation: No Patient has homicidal ideation: No Renal/ Medical History: Denies: Hx Peritoneal Dialysis - Immunizations Hx Diphtheria, Pertussis, Tetanus Vaccination: Yes Vertical Provider Document - CONSTITUTIONAL Agree With Documented VS: Yes Notes: PHYSICAL EXAMINATION: GENERAL: Well-appearing, well-nourished and in no acute distress. HEAD: Atraumatic, normocephalic. EYES: Pupils equal round and reactive to light, extraocular movements intact, sclera anicteric, conjunctiva are normal. ENT: Nares patent and without discharge. oropharynx clear without exudates. No tonsilar hypertrophy or erythema. Moist mucous membranes. NECK: Normal range of motion, supple without lymphadenopathy LUNGS: Breath sounds clear to auscultation bilaterally and equal. No wheezes rales or rhonchi. HEART: Regular rate and rhythm without murmurs, rubs, gallops. ABDOMEN: Soft, nontender, nondistended abdomen. No guarding, no rebound. Normal bowel sounds present. No CVA tenderness bilaterally. Richards negative. No tenderness at McBurney point. Musculoskeletal: FROM to passive/active. Strength 5+/5. Extremities: No cyanosis, clubbing, or edema b/l. Peripheral pulses 2+. Capillary refill less than 3 seconds. NEUROLOGICAL: Cranial nerves grossly intact. Normal speech, normal gait. PSYCH: Normal mood, normal affect. SKIN: Warm, Dry, normal turgor, no rashes or lesions noted. - INFECTION CONTROL TRAVEL OUTSIDE OF THE [place] IN LAST 30 DAYS: No Course - Re-evaluation Re-evalutation: 04/18/19 12:40 Patient is an afebrile, well-hydrated, 33-year-old female who presents with nausea, vomiting, and diarrhea to be viral. Vitals are acceptable without significant tachycardia, tachypnea, or hypoxia. PE is otherwise unremarkable. Patient's abdomen is soft nontender. Lungs are clear to auscultation bilaterally. Patient is nontoxic-appearing and is able to tolerate p.o. without difficulty. Patient has not had any symptoms over the past couple hours. Patient primarily here for a work note. No further work-up warranted at this time. Low suspicion for any sepsis, meningitis, severe dehydration, respiratory compromise, acute abdomen, or other systemic emergent condition at this time. Patient is aware that condition can change from initial presentation and she needs to monitor symptoms closely and seek medical attention with any acute changes. I will send her home with a prescription for Zofran. Recheck with your PCM in 2 to 3 days. Consider consult with GI. Return to the ED with any other worsening/concerning symptoms. Patient is in agreement. - Vital Signs Vital signs: Temp Pulse Resp BP Pulse Ox 98.3 F 70 16 118/81 99 04/18/19 12:22 04/18/19 12:22 04/18/19 12:22 04/18/19 12:22 04/18/19 12:22 Discharge - Discharge Clinical Impression: Nausea vomiting and diarrhea Condition: Stable Disposition: HOME, SELF-CARE Instructions: Antinausea Medication ([facility]), Diarrhea, Nonspecific ([facility]), V omiting ([facility]) Additional Instructions: Maintain adequate fluid and food intake [place] diet ([employer] Bananas, rice, apples, toast, etc Zofran as needed tylenol if needed Monitor for any worsening symptoms Make sure you are staying hydrated enough to urinate and have normal BM's Recheck with your PCM in 2-3 days Consider consult with Gastroenterology for ongoing/worsening symptoms Return to the ED with any worsening symptoms and/or development of fever, headache, chest pain, palpitations, syncope, shortness of breath, trouble breathing, abdominal pain, n/v/d, blood in stool/urine, weakness, or other worsening symptoms that are concerning to you. Prescriptions: Ondansetron [Zofran Odt 4 mg Tablet] 1 - 2 tab PO Q4H PRN #15 tab.rapdis PRN Reason: For Nausea/Vomiting Forms: Return to Work Referrals: ROXANNA NORRIS MD [ACTIVE STAFF] - Follow up as needed
== END 2019-04-18 12:48 | disposition home or self-care (01) ==
LOC: ER 12:03
DX: R11.2 Nausea with vomiting, unspecified (principal); R19.7 Diarrhea, unspecified
CPT/HCPCS: 99281; S0119